=== PATIENT | male | born 1995 | race Caucasian/White ===

== ENCOUNTER 2016-10-15 00:16 | Inpatient (IN) | payer OTHER ==
[~2016-10-15] VITALS: Ht 182.9 cm; Wt 87.9 kg
[2016-10-15] VITALS (73 sets, daily range): BP systolic 62–214; BP diastolic 34–91; PULSE 95–139; TEMP 31.9–35; O2SAT 87–99; Ht 182.9 cm; Wt 87.9 kg
[~2016-10-15 00:16] MED LIST: ALBU1AER9
[2016-10-15 00:37] LABS: HEMATOCRIT 46.8 % (42-52); MEAN CELL VOLUME 98.7 fL (80-100); MEAN CORPUSCULAR HEMOGLOBIN 30.6 pg (25-34); MEAN PLATELET VOLUME 11.9 fL (7.4-10.4); PLATELET COUNT 218 K/uL (130-400); RED BLOOD COUNT 4.74 M/uL (4.7-6.1); WHITE BLOOD COUNT 14.96 K/uL (4.8-10.8)
[2016-10-15] MEDS ORDERED: SERT50TA PO (00:41)
[2016-10-15] MEDS ORDERED: PRVHFAIN INH (00:42)
[2016-10-15] MEDS ORDERED: DLN100 PO (00:44)
[2016-10-15] MEDS ORDERED: LORA-741 PO (00:45)
[2016-10-15 00:48] LABS: URINE APPEARANCE CLEAR (CLEAR); URINE BILIRUBIN NEG (NEG); URINE COLOR YELLOW; URINE NITRITE NEG (NEG); URINE SPECIFIC GRAVITY 1.028 (1.000-1.030); UROBILINOGEN NEG (NEG)
[2016-10-15] MEDS ORDERED: MONT1TAB5 PO (00:48)
[2016-10-15 00:50] LABS: ISTAT CREATININE 1.9 mg/dl (0.6-1.3); ISTAT HEMOGLOBIN 14.6 g/dl (14.0-18.0); ISTAT IONIZED CALCIUM 1.32 mmol/l (1.12-1.32)
--- NOTE | 2016-10-15 00:53 | EMERGENCY ROOM VISIT NOTE ---
History Report prepared by Adriano: Rafa Huizar Under the Supervision of: Dr. Princess Cano D.O. First contact with patient: 00:16 Chief Complaint: CARDIAC ARREST (DOA) Stated Complaint: CARDIAC ARREST History of Present Illness The patient is a 21 year old male who presents to the Emergency Room with complaints of cardiac arrest. This history is given by EMS secondary to the patient's cardiac arrest. He was last known well at 2216. EMS was called at 2300. The patient was found by his girlfriend in [place] with a white substance around his face. He was unresponsive when EMS arrived. He received 1 mg x 5 Epinephrine, 100 meq Bicarb, 1 g Calcium, and 2 mg Narcan. Per EMS, he had a white crushed pill, marijuana, on his person. His sugar was 541. Per the patient's parents, he has a past medical history of benzodiazepine abuse. Source of History: EMS History Limited By: cardiac arrest Onset: Last known well at 2216, EMS called at 2335 Position: other (Global) Symptom Intensity: severe Quality: other (Cardiac Arrest) Timing: constant Review of Systems See HPI for pertinent positives & negatives. A total of 10 systems reviewed and were otherwise negative. Past Medical & Surgical Medical Problems: (1) ASTHMA, UNSPECIFIED Unable to obtain secondary to cardiac arrest. Family History Unable to obtain secondary to cardiac arrest. Social History Housing Status: lives with family Social History: Unable to obtain secondary to cardiac arrest. Per the patient's parents, he has a past medical history of benzodiazepine abuse. Current/Historical Medications Scheduled Albuterol (Ventolin Hfa), 2 PUFFS INH QID Clindamycin Phosphate-Benzoyl (Acanya), 1 APPLN TOP BID Montelukast Sodium (Montelukast Sodium), 10 MG PO DAILY Phenytoin Sodium (Dilantin), 100 MG PO TID Sertraline (Zoloft), 50 MG PO DAILY Scheduled PRN Loratadine (Claritin), 10 MG PO DAILY PRN for ALLERGIC REACTION Lorazepam (Ativan), 0.5 MG PO DAILY PRN for Anxiety Allergies Coded Allergies: No Known Allergies (Verified , 11/19/04) Physical Exam Vital Signs Date Time Temp Pulse Resp B/P (MAP) Pulse Ox O2 Delivery O2 Flow Rate FiO2 10/15/16 01:26 103 25 85/36 96 10/15/16 01:21 101 25 87/37 97 10/15/16 01:16 97 25 79/31 95 10/15/16 01:14 94 10/15/16 01:11 91 30 74/30 91 10/15/16 01:06 88 10/15/16 01:06 88 29 82/47 90 10/15/16 01:01 86 20 74/29 90 10/15/16 01:00 34.1 113 20 137/49 76 Ambu-Bag 15.0 10/15/16 00:56 85 74/44 92 10/15/16 00:51 87 81/35 92 10/15/16 00:46 98 99/46 95 10/15/16 00:44 100 10/15/16 00:41 121 147/95 93 10/15/16 00:38 101 10/15/16 00:36 101 80/37 91 10/15/16 00:35 77/44 10/15/16 00:31 103 79/42 88 10/15/16 00:26 108 98/48 83 10/15/16 00:21 125 119/66 76 10/15/16 00:19 137/49 10/15/16 00:18 113 Physical Exam General: Unresponsive with vomitus coming from the nose and mouth. HEENT: Head - normocephalic and atraumatic Pupils are 8 mm's and fixed. Extraocular eye muscles are intact, and sclera are anicteric. Nose - moist nasal mucosa with vomit noted. Mouth - moist buccal mucosa. Oropharynx is nonerythematous and there is no tonsillar exudate or edema noted. Endotracheal tube in place. Neck: Supple; no nuchal rigidity, cervical lymphadenopathy. Heart: Tachycardic rate and normal rhythm. There is a normal S1 and S2 with no murmurs, clicks, or gallops appreciated. Lungs: Clear to auscultation bilaterally with no wheezes, rales, or rhonchi. Abdomen: Soft, distended, with good bowel sounds. There are no palpable pulsatile masses or hepatosplenomegaly. There is no guarding, rigidity, or rebound noted. Extremities: No evidence of cyanosis, clubbing, or edema. There are easily palpable peripheral pulses. No obvious track dunbar. Skin: warm and diaphoretic with good turgor and no rashes. Medical Decision & Procedures ER Provider Diagnostic Interpretation: Radiology results as stated below per my review and the radiologist's interpretation: CHEST X-RAY: Endotracheal tube 3 cm above the adi. Biapical opacities concerning for aspiration. Per pr Laboratory Results 10/15/16 00:22 Red Blood Count 4.74, Mean Corpuscular Volume 98.7, Mean Corpuscular Hemoglobin 30.6, Mean Corpuscular Hemoglobin Concent 31.0, Mean Platelet Volume 11.9, Neutrophils (%) (Auto) 14.9, Lymphocytes (%) (Auto) 78.4, Monocytes (%) (Auto) 4.1, Eosinophils (%) (Auto) 1.1, Basophils (%) (Auto) 0.3, Neutrophils # (Auto) 2.24, Lymphocytes # (Auto) 11.73, Monocytes # (Auto) 0.61, Eosinophils # (Auto) 0.16, Basophils # (Auto) 0.04 Test 10/15/16 00:22 10/15/16 00:26 10/15/16 00:35 10/15/16 00:40 White Blood Count 14.96 K/uL (4.8-10.8) Red Blood Count 4.74 M/uL (4.7-6.1) Hemoglobin 14.5 g/dL (14.0-18.0) Hematocrit 46.8 % (42-52) Mean Corpuscular Volume 98.7 fL (80-100) Mean Corpuscular Hemoglobin 30.6 pg (25-34) Mean Corpuscular Hemoglobin Concent 31.0 g/dl (32-36) Platelet Count 218 K/uL (130-400) Mean Platelet Volume 11.9 fL (7.4-10.4) Neutrophils (%) (Auto) 14.9 % Lymphocytes (%) (Auto) 78.4 % Monocytes (%) (Auto) 4.1 % Eosinophils (%) (Auto) 1.1 % Basophils (%) (Auto) 0.3 % Neutrophils # (Auto) 2.24 K/uL (1.4-6.5) Lymphocytes # (Auto) 11.73 K/uL (1.2-3.4) Monocytes # (Auto) 0.61 K/uL (0.11-0.59) Eosinophils # (Auto) 0.16 K/uL (0-0.5) Basophils # (Auto) 0.04 K/uL (0-0.2) RDW Standard Deviation 45.7 fL (36.4-46.3) RDW Coefficient of Variation 12.7 % (11.5-14.5) Immature Granulocyte % (Auto) 1.2 % Immature Granulocyte # (Auto) 0.18 K/uL (0.00-0.02) Echinocytes 1+ Lactic Acid Level 16.1 mmol/L (0.4-2.0) Total Bilirubin 0.3 mg/dl (0.2-1) Aspartate Amino Transf (AST/SGOT) 63 U/L (15-37) Alanine Aminotransferase (ALT/SGPT) 54 U/L (12-78) Alkaline Phosphatase 104 U/L (45-117) Total Protein 6.2 gm/dl (6.4-8.2) Albumin 3.4 gm/dl (3.4-5.0) Globulin 2.8 gm/dl (2.5-4.0) Albumin/Globulin Ratio 1.2 (0.9-2) Beta-Hydroxybutyric Acid 2.31 mg/dL (0.2-2.81) Chemistry Specimen Hemolysis Salicylates Level < 1.7 mg/dl (2.8-20) Acetaminophen Level < 2 ug/ml (10-30) Ethyl Alcohol mg/dL < 3.0 mg/dl (0-3) Bedside Chloride 100 mEq/L (101-112) Bedside Total CO2 19 mEq/l (24-31) Bedside Blood Urea Nitrogen 24 mg/dl (7-18) Bedside Creatinine 1.9 mg/dl (0.6-1.3) Bedside Glucose (other) 459 mg/dl (70-99) Bedside Ionized Calcium (Katherine) 1.32 mmol/l (1.12-1.32) Urine Color YELLOW Urine Appearance CLEAR (CLEAR) Urine pH 5.0 (4.5-7.5) Urine Specific [place] 1.028 (1.000-1.030) Urine Protein NEG (NEG) Urine Glucose (UA) NEG (NEG) Urine Ketones NEG (NEG) Urine Occult Blood NEG (NEG) Urine Nitrite NEG (NEG) Urine Bilirubin NEG (NEG) Urine Urobilinogen NEG (NEG) Urine Leukocyte Esterase NEG (NEG) Urine Opiates Screen NEG (NEG) Urine Methadone, Qualitative NEG (NEG) Urine Barbiturates NEG (NEG) Urine Phencyclidine (PCP) Level NEG (NEG) Ur Amphetamine/Methamphetamine NEG (NEG) MDMA (Ecstasy) Screen NEG (NEG) Urine Benzodiazepines Screen POS (NEG) Urine Cocaine Metabolite NEG (NEG) Urine Marijuana (THC) POS (NEG) Arterial Blood pH 6.86 (7.35-7.45) Arterial Blood Partial Pressure CO2 87 mmHg (35-46) Arterial Blood Partial Pressure O2 122 mm/Hg (80-95) Arterial Blood HCO3 15 mmol/L (19-24) Arterial Blood Oxygen Saturation 94.7 % (90-95) Arterial Blood Base Excess -19.1 mEq/L (-9-1.8) Arterial Blood Gas Delivery 100% Keon Test POS (POS) Test 10/15/16 01:26 Bedside Hemoglobin 11.2 g/dl (14.0-18.0) Bedside Hematocrit 33 % (42-52) Bedside Sodium 141 mEq/L (135-144) Bedside Potassium 5.3 mEq/L (3.3-5.0) Laboratory results per my review. Medications Administered Medications (Trade) Dose Ordered Sig/Jose Route Start Time Stop Time Status Last Admin Dose Admin Piperacillin Sod/ Tazobactam Sod (Zosyn Iv) 4.5 gm NOW STAT IV 10/15/16 01:19 10/15/16 01:20 DC 10/15/16 01:50 4.5 GM Procedure Zosyn Iv 4.5 gm IV IV normal saline hydration IV cold saline bolus ECG Indication: toxicologic Rate (beats per minute): 102 Rhythm: sinus tachycardia Findings: no acute ischemic change, no ectopy ED Course 0016: Past medical records reviewed. The patient was evaluated in room A1. A complete history and physical exam was performed. 218-gauge IV catheters were placed in each arm. A normal saline bolus was initiated. The patient was placed on a cut off operator scorer and pulse oximeter. He had such significant vomit around his stay in mouth, the tube donato had to be changed and the patient was suctioned from the mouth and nose. A twelve-lead EKG was obtained. 0036: I spoke with Dr. Cummins - [facility], at this time. He recommended that we try to transfer the patient to a tertiary care facility for further management. 0045: The patient's uncle is at bedside. I am updating him. I also spoke with the patient's father on the phone. 0108: We started the cooling process at this time. I was informed by the police that they found Oxycodone and Vicodin at the patients house that he purchased today. 0113: I was informed that we will not be able to transfer the patient because of weather conditions. Dr. Cummins will be coming in to evaluate the patient further. Dr. Rubio - [facility], is also managing the patient as well. ABG was noted to be significantly acidotic with a pH of 6.86. I increased the patient's respiratory rate on the ventilator trying to achieve a higher minute ventilation. 0119: There is concern on the chest x-ray and by history for aspiration pneumonia. The patient was given Zosyn Iv 4.5 gm IV 0135: I spoke with the patient's mother at this time. He is receiving 2 L of cooled saline. His pressure went up slightly. He has a cooling blanket in place. I ordered the patient to start IV leave the fat as his pressure did not come up significantly after receiving the cooled saline. However, the patient' s blood pressure then seemed to normalize. I discussed the case at bedside with Dr. Cummins and Dr. Mendez. Medical Decision The patient is a 21 year old male who presents to the ED with cardiac arrest. Differential diagnosis includes drug overdose, cardiac arrest, anoxic brain injury, and aspiration. I attest that I have personally reviewed the patient's current medication list. Blood Pressure Screening: Patient was found to have low blood pressure, status post cardiac arrest. Laboratory Results: White blood cell count 14.9, hemoglobin 14.6, platelet count 218, glucose 467, creatinine 2.5, BUN 20, anion gap 24, carbon dioxide 17, LFTs normal, BHA 2.3, initial blood gas pH 6.86, pCO2 87, pO2 122, bicarb 15, repeat ABG after vent adjustments pH 7.0, pCO2 69, pO2 189, bicarb 18, toxicity screen positive for benzodiazepine and marijuana, Tylenol and Aspirin levels neg, alcohol negative, and urinalysis normal. This is a 21-year-old male patient with a history of benzodiazepine abuse who was found in his bedroom in cardiac arrest. The patient was found by his girlfriend with agonal respirations. Upon S arrival, the patient had a faint pulse but was barely breathing. They assisted ventilations. The patient then became pulseless and CPR was initiated. Upon ALS arrival, the patient was placed in a cut off operator scorer and found to be asystolic. CPR was continued and the patient was given multiple doses of IV epinephrine, IV bicarbonate, and IV calcium. The patient remained asystolic for most of the transport. After a second dose of IV bicarbonate, the patient regained a rhythm of sinus tachycardia with a faint pulse. He was then given IV Narcan with return of spontaneous circulation and strong carotid pulse. Upon arrival in the emergency department, the patient had a pulse and blood pressure but no spontaneous respirations. He was placed on the ventilator. Chest x-ray showed that the endotracheal tube was somewhat high and had to be advanced. There was concern for aspiration pneumonia on the x-ray and IV antibiotics were started. The patient's O2 saturation dropped while in the emergency department. We reconfirm tube placement. He was hyperventilated. An ABG was obtained which showed severe metabolic acidosis. An OG tube was placed to decompress his stomach. The patient became hypotensive while here in the emergency department. He received 2 L of normal saline solution with no increased to his blood pressure. Because this was a ROSC after cardiac arrest, the colon process was started. The patient's initial rectal temperature was 34 . After 2 L of cool saline, the temp came down to 33. He is placed on a cooling blanket. We were targeting 32. I kept the patient's uncle abreast of the situation while he was at the bedside. Consults Time Called: 003 Consulting Physician: Dr. Cummins - [facility] Returned Call: 0036 Please see the ED course for more information. Additional Consults: Time Called: 0110 Consulted Physician: Dr. Cummins - [facility] Returned Call: 0113 Additional Comments: Please see the ED course for more information. Impression Primary Impression: Cardiac arrest Additional Impression: Drug overdose Critical Care I have personally spent greater than 90 minutes of critical care time in the direct management of this patient. This includes bedside care, interpretation of diagnostic studies, and testing, discussion with consultants, patient, and family members, and other required patient management activities. This 90 minutes is in excess of all separately billable procedures. Scribe Attestation The scribe's documentation has been prepared under my direction and personally reviewed by me in its entirety. I confirm that the note above accurately reflects all work, treatment, procedures, and medical decision making performed by me. Departure Information Dispostion Being Evaluated By Hospitalist Patient Instructions My [facility] Problem Qualifiers
[2016-10-15 00:56] LABS: MANUAL MICROSCOPIC REQUIRED? NO; REVIEW REQ? NO
[2016-10-15 01:01] LABS: ALLEN TEST POS (POS); ARTERIAL BLD GAS O2 SATURATION 94.7 % (90-95); ARTERIAL BLOOD GAS BASE EXCESS -19.1 mEq/L (-9-1.8); ARTERIAL BLOOD GAS HCO3 15 mmol/L (19-24); ARTERIAL BLOOD GAS PO2 122 mm/Hg (80-95); O2 ADMINISTRATION 100%
[2016-10-15 01:02] LABS: ARTERIAL BLOOD GAS pH 6.86 (7.35-7.45)
[2016-10-15 01:04] LABS: ALB/GLOB RATIO 1.2 (0.9-2); ALKALINE PHOSPHATASE 104 U/L (45-117); ALT/SGPT 54 U/L (12-78); AST/SGOT 63 U/L (15-37); BLOOD UREA NITROGEN 20 mg/dl (7-18); BUN/CREATININE RATIO 8.1 (10-20); CALCIUM 10.4 mg/dl (8.5-10.1); CARBON DIOXIDE 17 mmol/L (21-32); CHLORIDE 102 mmol/L (98-107); GLUCOSE 467 mg/dl (70-99); POTASSIUM 4.3 mmol/L (3.5-5.1); SODIUM 143 mmol/L (136-145)
[2016-10-15 01:06] LABS: BASO % 0.3 %; BASO ABS # 0.04 K/uL (0-0.2); COMPLETE YES; ECHINOCYTES 1+; EOS % 1.1 %; IG% 1.2 %; LYMPH % 78.4 %; LYMPH ABS # 11.73 K/uL (1.2-3.4); MONO % 4.1 %; NEUT % 14.9 %
[2016-10-15 01:09] LABS: BENZODIAZEPINE, URINE POS (NEG); COCAINE,URINE NEG (NEG); PHENCYCLIDINE, URINE NEG (NEG)
[2016-10-15] MEDS ORDERED: CLIN45GE TOP (01:13)
[2016-10-15] MEDS ORDERED: CLR10 PO (01:15)
[2016-10-15 01:16] LABS: BETA-HYDROXYBUTYRATE 2.31 mg/dL (0.2-2.81)
[2016-10-15] MEDS ORDERED: PIPERACILLIN/TAZOBACTAM 4.5 GM/100ML D5W IV STA ×2 (01:19→06:28)
[2016-10-15 01:21] LABS: ACETAMINOPHEN < 2 ug/ml (10-30)
[2016-10-15 01:39] LABS: ISTAT ARTERIAL BLOOD GAS HCO3 18 meq/L (19-24); ISTAT ARTERIAL BLOOD GAS PCO2 69 mmHg (35-46); ISTAT ARTERIAL BLOOD GAS PO2 189 mmHg (80-95); ISTAT ARTERIAL BLOOD GAS pH 7.01 (7.35-7.45); ISTAT CARBON DIOXIDE 20 mEq/l (24-31); ISTAT HEMATOCRIT 33 % (42-52); ISTAT HEMOGLOBIN 11.2 g/dl (14.0-18.0); ISTAT SODIUM 141 mEq/L (135-144)
--- NOTE | 2016-10-15 02:11 | Critical Care Consultation ---
Critical Care Consultation Date of Consultation: Oct 15, 2016. Attending Physician: Reason for Consultation: Respiratory Arrest/Cardiac Arrest History of Present Illness Asked to evaluate for ICU care. He was found in arrest and attempts to restore respiratory and circulatory status made in the field. He was given additional care in the ER. In addition to volume and pressors, ventilatory support provided. He did require CPR for a prolonged period. With these heroic measures a pulse and B/P were established. He is comatose and on a ventilator. My initial evaluation finds him with fixed and dilated pupils. No reaction to any stimulation could be generated. He is requiring 100% oxygen and massive support. Past Medical/Surgical History Benzo-abuse is report Seizure Disorder suggested Anxiety? Disorder Social History Unknown but ER physician reports evidence of probable drug abuse at the seen. This information was reportedly from the State Police. Smoking Status: Never Smoker Marital Status: single Housing Status: lives with family Occupation Status: student Allergies Coded Allergies: No Known Allergies (Verified , 11/19/04) Home Medications Scheduled Albuterol (Ventolin Hfa), 2 PUFFS INH QID Clindamycin Phosphate-Benzoyl (Acanya), 1 APPLN TOP BID Montelukast Sodium (Montelukast Sodium), 10 MG PO DAILY Phenytoin Sodium (Dilantin), 100 MG PO TID Sertraline (Zoloft), 50 MG PO DAILY Scheduled PRN Loratadine (Claritin), 10 MG PO DAILY PRN for ALLERGIC REACTION Lorazepam (Ativan), 0.5 MG PO DAILY PRN for Anxiety Review of Systems Unavailable--I did speak with the ER doctor. Drug overdose was suggested by the police and EMS personnel. He is comatose. Physical Exam Date Time Temp Pulse Resp B/P (MAP) Pulse Ox O2 Delivery O2 Flow Rate FiO2 10/15/16 01:58 100 10/15/16 01:56 33.1 113 20 91/42 90 10/15/16 01:51 112 15 92/42 90 10/15/16 01:49 81/44 10/15/16 01:46 109 25 71/43 88 10/15/16 01:45 33.1 10/15/16 01:41 108 25 86/40 93 10/15/16 01:37 80 10/15/16 01:36 106 25 81/36 94 10/15/16 01:31 103 25 85/34 96 10/15/16 01:26 103 25 85/36 96 10/15/16 01:21 101 25 87/37 97 10/15/16 01:16 97 25 79/31 95 10/15/16 01:14 94 10/15/16 01:11 91 30 74/30 91 10/15/16 01:06 88 10/15/16 01:06 88 29 82/47 90 10/15/16 01:01 86 20 74/29 90 10/15/16 01:00 34.1 113 20 137/49 76 Ambu-Bag 15.0 10/15/16 00:56 85 74/44 92 10/15/16 00:51 87 81/35 92 10/15/16 00:46 98 99/46 95 10/15/16 00:44 100 10/15/16 00:41 121 147/95 93 10/15/16 00:38 101 10/15/16 00:36 101 80/37 91 10/15/16 00:35 77/44 10/15/16 00:31 103 79/42 88 10/15/16 00:26 108 98/48 83 10/15/16 00:21 125 119/66 76 10/15/16 00:19 137/49 10/15/16 00:18 113 Gen--comatose HEENT--pupils appear dilated and fixed at this point. No mia. Does not trigger the vent Respiratory--course exchange Cardio--rate and volume difficult to evaluate at this point. He is perfused. GI--very faint --samayoa to gravity Musculo--no erythema, no evidence of trauma Neuro--comatose--Coma Score--0 Derm--no active lesions suggested Laboratory Results Last 24 Hours Test 10/15/16 00:22 10/15/16 00:26 10/15/16 00:35 10/15/16 00:40 White Blood Count 14.96 K/uL Red Blood Count 4.74 M/uL Hemoglobin 14.5 g/dL Hematocrit 46.8 % Mean Corpuscular Volume 98.7 fL Mean Corpuscular Hemoglobin 30.6 pg Mean Corpuscular Hemoglobin Concent 31.0 g/dl Platelet Count 218 K/uL Mean Platelet Volume 11.9 fL Neutrophils (%) (Auto) 14.9 % Lymphocytes (%) (Auto) 78.4 % Monocytes (%) (Auto) 4.1 % Eosinophils (%) (Auto) 1.1 % Basophils (%) (Auto) 0.3 % Neutrophils # (Auto) 2.24 K/uL Lymphocytes # (Auto) 11.73 K/uL Monocytes # (Auto) 0.61 K/uL Eosinophils # (Auto) 0.16 K/uL Basophils # (Auto) 0.04 K/uL RDW Standard Deviation 45.7 fL RDW Coefficient of Variation 12.7 % Immature Granulocyte % (Auto) 1.2 % Immature Granulocyte # (Auto) 0.18 K/uL Echinocytes 1+ Sodium Level 143 mmol/L Potassium Level 4.3 mmol/L Chloride Level 102 mmol/L Carbon Dioxide Level 17 mmol/L Anion Gap 24.0 mmol/L 27.0 mmol/L Blood Urea Nitrogen 20 mg/dl Creatinine 2.50 mg/dl Estimated GFR () 40.7 Estimated GFR (Non- 35.1 BUN/Creatinine Ratio 8.1 Random Glucose 467 mg/dl Lactic Acid Level 16.1 mmol/L Calcium Level 10.4 mg/dl Total Bilirubin 0.3 mg/dl Aspartate Amino Transf (AST/SGOT) 63 U/L Alanine Aminotransferase (ALT/SGPT) 54 U/L Alkaline Phosphatase 104 U/L Total Protein 6.2 gm/dl Albumin 3.4 gm/dl Globulin 2.8 gm/dl Albumin/Globulin Ratio 1.2 Beta-Hydroxybutyric Acid 2.31 mg/dL Chemistry Specimen Hemolysis Salicylates Level < 1.7 mg/dl Acetaminophen Level < 2 ug/ml Ethyl Alcohol mg/dL < 3.0 mg/dl Bedside Hemoglobin 14.6 g/dl Bedside Hematocrit 43 % Bedside Sodium 141 mEq/L Bedside Potassium 4.2 mEq/L Bedside Chloride 100 mEq/L Bedside Total CO2 19 mEq/l Bedside Blood Urea Nitrogen 24 mg/dl Bedside Creatinine 1.9 mg/dl Bedside Glucose (other) 459 mg/dl Bedside Ionized Calcium (Katherine) 1.32 mmol/l Urine Color YELLOW Urine Appearance CLEAR Urine pH 5.0 Urine Specific [place] 1.028 Urine Protein NEG Urine Glucose (UA) NEG Urine Ketones NEG Urine Occult Blood NEG Urine Nitrite NEG Urine Bilirubin NEG Urine Urobilinogen NEG Urine Leukocyte Esterase NEG Urine Opiates Screen NEG Urine Methadone, Qualitative NEG Urine Barbiturates NEG Urine Phencyclidine (PCP) Level NEG Ur Amphetamine/Methamphetamine NEG MDMA (Ecstasy) Screen NEG Urine Benzodiazepines Screen POS Urine Cocaine Metabolite NEG Urine Marijuana (THC) POS Arterial Blood pH 6.86 Arterial Blood Partial Pressure CO2 87 mmHg Arterial Blood Partial Pressure O2 122 mm/Hg Arterial Blood HCO3 15 mmol/L Arterial Blood Oxygen Saturation 94.7 % Arterial Blood Base Excess -19.1 mEq/L Arterial Blood Gas Delivery 100% Keon Test POS Test 10/15/16 01:26 Bedside Hemoglobin 11.2 g/dl Bedside Hematocrit 33 % Bedside Blood Gas pH (LAB) 7.01 Bedside Blood Gas pCO2 (LAB) 69 mmHg Bedside Blood Gas pO2 (LAB) 189 mmHg Bedside Blood Gas HCO3 (LAB) 18 meq/L Bedside Blood Gas Total CO2 20 mEq/l Bedside Blood Gas Base Excess (LAB) -13.0 meq/L Bedside Blood Gas O2 Saturation 99.0 % Bedside Sodium 141 mEq/L Bedside Potassium 5.3 mEq/L Assessment & Plan Cardiopulmonary arrest likely the result of OD--A prolonged period of heroic efforts noted. This represents a catastrophic event and I fear he is neurological devastated. 1. Cardio--general supportive measures in place--ICU care--Pressors and volume as required. 2. Pulmonary--vent support--aspiration likely. May also have an element of neurogenic pulmonary edema. He currently is requiring 100% oxygen and generous PEEP 3. Neuro--general supportive measures--will talk the team--Situation looking grave. The cooling protocol was initiated but given my evaluation I doubt this will be of any benefit at this point and will look to discontinue this measure. EEG in the AM to help determine objective neuro activity. His condition is grave. Addendum: 1100 He has received mass amounts of fluid and is now on Dopamine and Norepi. His acidosis is very difficult to correct. I am seeing signs of poor perfusion despite efforts. Maximal vent support in place. Urine output is poor. The neurological status unchanged. No response whatsoever can be generated. Has gotten no sedation whatsoever. He appears premorbid. I will discuss the status with neurology and the ICU team. Will update the family.
[2016-10-15 03:00] LABS: ISTAT ALLEN TEST Pass; ISTAT ARTERIAL BLOOD GAS HCO3 20 meq/L (19-24); ISTAT ARTERIAL BLOOD GAS PCO2 55 mmHg (35-46); ISTAT ARTERIAL BLOOD GAS PO2 40 mmHg (80-95); ISTAT ARTERIAL BLOOD GAS pH 7.14 (7.35-7.45); ISTAT CARBON DIOXIDE 22 mEq/l (24-31); ISTAT DELIVERY SYSTEM Ventilator; ISTAT FIO2 100 %; ISTAT PEEP 10; ISTAT RATE 20; ISTAT SITE L Radial; VE 12.8; Vt 640
[2016-10-15 04:36] LABS: ISTAT ALLEN TEST Pass; ISTAT ARTERIAL BLOOD GAS HCO3 18 meq/L (19-24); ISTAT ARTERIAL BLOOD GAS PCO2 44 mmHg (35-46); ISTAT ARTERIAL BLOOD GAS PO2 < 32 mmHg (80-95); ISTAT ARTERIAL BLOOD GAS pH 7.18 (7.35-7.45); ISTAT CARBON DIOXIDE 19 mEq/l (24-31); ISTAT DELIVERY SYSTEM Ventilator; ISTAT FIO2 100 %; ISTAT PEEP 10; ISTAT RATE 20; ISTAT SITE R Radial; Vt 700
[2016-10-15 04:36] LABS: ISTAT ALLEN TEST Pass; ISTAT ARTERIAL BLOOD GAS HCO3 19 meq/L (19-24); ISTAT ARTERIAL BLOOD GAS PCO2 44 mmHg (35-46); ISTAT ARTERIAL BLOOD GAS PO2 < 32 mmHg (80-95); ISTAT CARBON DIOXIDE 20 mEq/l (24-31); ISTAT DELIVERY SYSTEM Ventilator; ISTAT FIO2 100 %; ISTAT PEEP 10; ISTAT RATE 20; ISTAT SITE R Radial; Vt 700
[2016-10-15] MEDS ORDERED: LACTATED RINGER'S 1000ML 1,000 ML IV STA (04:42)
[2016-10-15] MEDS ORDERED: D5W AND NSS 1,000 ML IV SCH (04:45)
[2016-10-15] MEDS ORDERED: NURSING VERBAL MED ORDER ONE ×5 (04:45→22:45)
[2016-10-15 04:48] LABS: ISTAT ALLEN TEST Pass; ISTAT ARTERIAL BLOOD GAS HCO3 18 meq/L (19-24); ISTAT ARTERIAL BLOOD GAS PCO2 44 mmHg (35-46); ISTAT ARTERIAL BLOOD GAS PO2 < 32 mmHg (80-95); ISTAT ARTERIAL BLOOD GAS pH 7.19 (7.35-7.45); ISTAT CARBON DIOXIDE 20 mEq/l (24-31); ISTAT DELIVERY SYSTEM Ventilator; ISTAT FIO2 100 %; ISTAT PEEP 10; ISTAT RATE 20; ISTAT SITE L Radial; Vt 700
[2016-10-15] MEDS ORDERED: NURSING VERBAL MED ORDER STA (05:02)
[2016-10-15] MEDS ORDERED: LACTATED RINGER'S 1000ML 1,000 ML IV SCH ×2 (05:15→13:00)
[2016-10-15 06:01] LABS: INR 1.5 (0.9-1.1); PARTIAL THROMBOPLASTIN RATIO 1.2; PROTHROMBIN TIME (PATIENT) 15.9 SECONDS (9.0-12.0)
[2016-10-15] MEDS ORDERED: SODIUM BICARB 8.4% INJ 50 MEQ/50 ML SYR IV ONE ×2 (06:14→06:39)
[2016-10-15] MEDS ORDERED: SOD CHLOR 14.6% 2.5MEQ/ML 38.5 MEQ, SODIUM BICARBONATE 8.4% INJ 100 MEQ in STERILE WATE... IV SCH (06:15)
[2016-10-15] MEDS ORDERED: NOREPINEPHRINE BIT INJ 8 MG in DEXTROSE 5% 500ML 500 ML IV PRN (06:16)
[2016-10-15] MEDS ORDERED: NALOXONE HCL 0.4 MG/1 ML VIAL/CARP IV STA (06:20)
[2016-10-15] MEDS ORDERED: NALOXONE HCL 0.4 MG/1 ML VIAL/CARP ONE (06:22)
[2016-10-15 06:24] LABS: BUN/CREATININE RATIO 11.4 (10-20); CALCIUM 7.4 mg/dl (8.5-10.1); CREATININE 2.1 mg/dl (0.60-1.40); MAGNESIUM 1.8 mg/dl (1.8-2.4); POTASSIUM 4.9 mmol/L (3.5-5.1)
[2016-10-15] MEDS ORDERED: VANCOMYCIN INJ 1,000 MG in SODIUM CHLORIDE 0.9% 250ML 250 ML IV STA (06:28)
[2016-10-15] MEDS ORDERED: PIPERACILL/TAZOBAC IV 4.5 GM in DEXTROSE 5% 100ML 100 ML IV SCH (06:30)
[2016-10-15] MEDS: SOD CHLOR 14.6% 2.5MEQ/ML 38.5 MEQ, SODIUM BICARBONATE 8.4% INJ 100 MEQ in STERILE WATE... IV SCH ×2 (06:31→06:46)
[2016-10-15] MEDS ORDERED: VANCOMYCIN INJ 2,200 MG in SODIUM CHLORIDE 0.9% 500ML 500 ML IV STA (06:32)
--- NOTE | 2016-10-15 06:37 | DIAGNOSTIC IMAGING REPORT ---
CHEST ONE VIEW PORTABLE HISTORY:21 yearsMaleHYPOXIA COMPARISON: Chest radiograph 10/15/2016 at 12:21 AM TECHNIQUE: Portable upright AP view of the chest FINDINGS: Endotracheal tube terminates 4.0 cm superior to the adi. Enteric tube courses below the level of the diaphragm outside the [id number] with side-port near the gastroesophageal junction. Cardiac silhouette is within normal limits. There are progressive multilobar multifocal alveolar opacities in a perihilar and bibasilar distribution with background interstitial coarsening. There is blunting of the bilateral costophrenic angles. The bones are grossly intact. IMPRESSION: 1. Satisfactory position of endotracheal tube. 2. Progressive bilateral perihilar and bibasilar distribution of alveolar opacities suggest pulmonary edema with small bilateral pleural effusions and bibasilar atelectasis or aspiration pneumonitis. The above report was generated using voice recognition software. It may contain grammatical, syntax or spelling errors. Electronically signed by: Aung Fisher M.D. 10/15/2016 6:36 AM Dictated Date/Time: 10/15/2016 6:33 AM
--- NOTE | 2016-10-15 06:54 | DIAGNOSTIC IMAGING REPORT ---
CHEST ONE VIEW PORTABLE HISTORY:21 yearsMalepost intubation respiratory failure. COMPARISON: Chest radiograph 10/15/2016 at 6:23 AM TECHNIQUE: Portable supine AP view of the chest FINDINGS: Endotracheal tube terminates 3.8 cm superior to the level of the adi. Cardiac silhouette is within normal limits. No pneumothorax or large pleural effusion. Multifocal mixed interstitial and alveolar opacities are noted, greatest in a perihilar and upper lobe predominant distribution. The bones are grossly intact. IMPRESSION: 1. Satisfactory positioning of endotracheal tube. 2. Multifocal mixed interstitial and alveolar opacities suggest pulmonary edema or atypical pneumonia. The above report was generated using voice recognition software. It may contain grammatical, syntax or spelling errors. Electronically signed by: Aung Fisher M.D. 10/15/2016 6:53 AM Dictated Date/Time: 10/15/2016 6:51 AM
[2016-10-15] MEDS ORDERED: PIPERACILL/TAZOBAC CONSULT ACTIVE PRN (07:00)
[2016-10-15] MEDS ORDERED: VANCOMYCIN CONSULT ACTIVE PRN (07:00)
--- NOTE | 2016-10-15 07:03 | History and Physical ---
History & Physical Date & Time of Service: Oct 15, 2016 at 06:43 Chief Complaint: Cardiac Arrest Primary Care Physician: Hemanth Razo M.D. History of Present Illness 21-year-old male was brought to the ER after cardiac arrest. Per EMS report, the patient was found unresponsive and had agonal breaths. His last known well time was at 2216. He was found with a white substance on his face and a white crushed pill, marijuana were found nearby. He was intubated and had chest compressions about 30 minutes before he was brought to the ER. Was also found to have a blood sugar of 541 Past Medical/Surgical History Medical Problems: (1) ASTHMA, UNSPECIFIED Status: Chronic Social History Smoking Status: Unknown if Ever Smoked Marital Status: single Occupational Status: student Multi-Drug Resistant Organisms History of MDRO: No Allergies Coded Allergies: No Known Allergies (Verified , 11/19/04) Home Medications Scheduled Albuterol (Ventolin Hfa), 2 PUFFS INH QID Clindamycin Phosphate-Benzoyl (Acanya), 1 APPLN TOP BID Montelukast Sodium (Montelukast Sodium), 10 MG PO DAILY Phenytoin Sodium (Dilantin), 100 MG PO TID Sertraline (Zoloft), 50 MG PO DAILY Scheduled PRN Loratadine (Claritin), 10 MG PO DAILY PRN for ALLERGIC REACTION Lorazepam (Ativan), 0.5 MG PO DAILY PRN for Anxiety Review of Systems unable to obtain as patient is intubated Physical Exam Vital Signs Date Time Temp Pulse Resp B/P (MAP) Pulse Ox O2 Delivery O2 Flow Rate FiO2 10/15/16 05:23 100 10/15/16 04:00 100 10/15/16 04:00 Mechanical Ventilator 100 10/15/16 04:00 32.0 106 20 85/62 (70) 89 Mechanical Ventilator 100 10/15/16 03:00 32.3 108 20 94/63 (73) 90 Mechanical Ventilator 100 10/15/16 02:46 32.6 109 20 84/55 (60) 88 10/15/16 02:30 100 10/15/16 02:30 88 Mechanical Ventilator 80 10/15/16 02:15 32.9 113 20 105/54 87 Mechanical Ventilator 100 10/15/16 02:12 33.0 113 20 102/51 88 Mechanical Ventilator 100 10/15/16 02:00 33.1 10/15/16 01:58 100 10/15/16 01:56 33.1 113 20 91/42 90 10/15/16 01:51 112 15 92/42 90 10/15/16 01:49 81/44 10/15/16 01:46 109 25 71/43 88 10/15/16 01:45 33.1 10/15/16 01:41 108 25 86/40 93 10/15/16 01:37 80 10/15/16 01:36 106 25 81/36 94 10/15/16 01:31 103 25 85/34 96 10/15/16 01:26 103 25 85/36 96 10/15/16 01:21 101 25 87/37 97 10/15/16 01:16 97 25 79/31 95 10/15/16 01:14 94 10/15/16 01:11 91 30 74/30 91 10/15/16 01:06 88 10/15/16 01:06 88 29 82/47 90 10/15/16 01:01 86 20 74/29 90 10/15/16 01:00 34.1 113 20 137/49 76 Ambu-Bag 15.0 10/15/16 00:56 85 74/44 92 10/15/16 00:51 87 81/35 92 10/15/16 00:46 98 99/46 95 10/15/16 00:44 100 10/15/16 00:41 121 147/95 93 10/15/16 00:38 101 10/15/16 00:36 101 80/37 91 10/15/16 00:35 77/44 10/15/16 00:31 103 79/42 88 10/15/16 00:26 108 98/48 83 10/15/16 00:21 125 119/66 76 10/15/16 00:19 137/49 10/15/16 00:18 113 Eyes: + pertinent finding (fixed and non reactive) ENT: + pertinent finding (intubated) Respiratory/Chest: lungs clear, normal breath sounds Cardiovascular: + tachycardia Abdomen/GI: normal bowel sounds, non tender, soft Extremities/Musculoskelatal: no pedal edema Neurologic/Psych: + pertinent finding (intubated) Diagnostics Laboratory Results Results Past 24 Hours Test 10/15/16 00:22 10/15/16 00:26 10/15/16 00:35 10/15/16 00:40 Range/Units White Blood Count 14.96 4.8-10.8 K/uL Red Blood Count 4.74 4.7-6.1 M/uL Hemoglobin 14.5 14.0-18.0 g/dL Hematocrit 46.8 42-52 % Mean Corpuscular Volume 98.7 80-100 fL Mean Corpuscular Hemoglobin 30.6 25-34 pg Mean Corpuscular Hemoglobin Concent 31.0 32-36 g/dl Platelet Count 218 130-400 K/uL Mean Platelet Volume 11.9 7.4-10.4 fL Neutrophils (%) (Auto) 14.9 % Lymphocytes (%) (Auto) 78.4 % Monocytes (%) (Auto) 4.1 % Eosinophils (%) (Auto) 1.1 % Basophils (%) (Auto) 0.3 % Neutrophils # (Auto) 2.24 1.4-6.5 K/uL Lymphocytes # (Auto) 11.73 1.2-3.4 K/uL Monocytes # (Auto) 0.61 0.11-0.59 K/uL Eosinophils # (Auto) 0.16 0-0.5 K/uL Basophils # (Auto) 0.04 0-0.2 K/uL RDW Standard Deviation 45.7 36.4-46.3 fL RDW Coefficient of Variation 12.7 11.5-14.5 % Immature Granulocyte % (Auto) 1.2 % Immature Granulocyte # (Auto) 0.18 0.00-0.02 K/uL Echinocytes 1+ Sodium Level 143 136-145 mmol/L Potassium Level 4.3 3.5-5.1 mmol/L Chloride Level 102 98-107 mmol/L Carbon Dioxide Level 17 21-32 mmol/L Anion Gap 24.0 27.0 16-25 mmol/L Blood Urea Nitrogen 20 7-18 mg/dl Creatinine 2.50 0.60-1.40 mg/dl Estimated GFR () 40.7 Estimated GFR (Non- 35.1 BUN/Creatinine Ratio 8.1 10-20 Random Glucose 467 70-99 mg/dl Lactic Acid Level 16.1 0.4-2.0 mmol/L Calcium Level 10.4 8.5-10.1 mg/dl Total Bilirubin 0.3 0.2-1 mg/dl Aspartate Amino Transf (AST/SGOT) 63 15-37 U/L Alanine Aminotransferase (ALT/SGPT) 54 12-78 U/L Alkaline Phosphatase 104 45-117 U/L Total Protein 6.2 6.4-8.2 gm/dl Albumin 3.4 3.4-5.0 gm/dl Globulin 2.8 2.5-4.0 gm/dl Albumin/Globulin Ratio 1.2 0.9-2 Beta-Hydroxybutyric Acid 2.31 0.2-2.81 mg/dL Chemistry Specimen Hemolysis Salicylates Level < 1.7 2.8-20 mg/dl Acetaminophen Level < 2 10-30 ug/ml Ethyl Alcohol mg/dL < 3.0 0-3 mg/dl Bedside Hemoglobin 14.6 14.0-18.0 g/dl Bedside Hematocrit 43 42-52 % Bedside Sodium 141 135-144 mEq/L Bedside Potassium 4.2 3.3-5.0 mEq/L Bedside Chloride 100 101-112 mEq/L Bedside Total CO2 19 24-31 mEq/l Bedside Blood Urea Nitrogen 24 7-18 mg/dl Bedside Creatinine 1.9 0.6-1.3 mg/dl Bedside Glucose (other) 459 70-99 mg/dl Bedside Ionized Calcium (Katherine) 1.32 1.12-1.32 mmol/l Urine Color YELLOW Urine Appearance CLEAR CLEAR Urine pH 5.0 4.5-7.5 Urine Specific [place] 1.028 1.000-1.030 Urine Protein NEG NEG Urine Glucose (UA) NEG NEG Urine Ketones NEG NEG Urine Occult Blood NEG NEG Urine Nitrite NEG NEG Urine Bilirubin NEG NEG Urine Urobilinogen NEG NEG Urine Leukocyte Esterase NEG NEG Urine Opiates Screen NEG NEG Urine Methadone, Qualitative NEG NEG Urine Barbiturates NEG NEG Urine Phencyclidine (PCP) Level NEG NEG Ur Amphetamine/Methamphetamine NEG NEG MDMA (Ecstasy) Screen NEG NEG Urine Benzodiazepines Screen POS NEG Urine Cocaine Metabolite NEG NEG Urine Marijuana (THC) POS NEG Arterial Blood pH 6.86 7.35-7.45 Arterial Blood Partial Pressure CO2 87 35-46 mmHg Arterial Blood Partial Pressure O2 122 80-95 mm/Hg Arterial Blood HCO3 15 19-24 mmol/L Arterial Blood Oxygen Saturation 94.7 90-95 % Arterial Blood Base Excess -19.1 -9-1.8 mEq/L Arterial Blood Gas Delivery 100% Keon Test POS POS Test 10/15/16 01:26 10/15/16 02:48 10/15/16 04:09 10/15/16 04:25 Range/Units Bedside Hemoglobin 11.2 14.0-18.0 g/dl Bedside Hematocrit 33 42-52 % Bedside Blood Gas pH (LAB) 7.01 7.14 7.18 7.20 7.35-7.45 Bedside Blood Gas pCO2 (LAB) 69 55 44 44 35-46 mmHg Bedside Blood Gas pO2 (LAB) 189 40 < 32 < 32 80-95 mmHg Bedside Blood Gas HCO3 (LAB) 18 20 18 19 19-24 meq/L Bedside Blood Gas Total CO2 20 22 19 20 24-31 mEq/l Bedside Blood Gas Base Excess (LAB) -13.0 -10.0 -12.0 -10.0 -9-1.8 meq/L Bedside Blood Gas O2 Saturation 99.0 73.0 64.0 66.0 90-95 % Bedside Sodium 141 135-144 mEq/L Bedside Potassium 5.3 3.3-5.0 mEq/L Blood Gas Sample Site L Radial R Radial R Radial Keon Test Pass Pass Pass Oxygen Delivery Device Ventilator Ventilator Ventilator Bedside Oxygen Rate (breaths/min) 20 20 20 Blood Gas Minute Ventilation 12.8 13.0 13.0 Bedside FiO2 100 100 100 % Blood Gas Tidal Volume 640 700 700 Blood Gas PEEP 10 10 10 Test 10/15/16 04:37 10/15/16 05:34 10/15/16 06:20 Range/Units Blood Gas Sample Site L Radial Bedside Blood Gas pH (LAB) 7.19 7.35-7.45 Bedside Blood Gas pCO2 (LAB) 44 35-46 mmHg Bedside Blood Gas pO2 (LAB) < 32 80-95 mmHg Bedside Blood Gas HCO3 (LAB) 18 19-24 meq/L Bedside Blood Gas Total CO2 20 24-31 mEq/l Bedside Blood Gas Base Excess (LAB) -11.0 -9-1.8 meq/L Bedside Blood Gas O2 Saturation 61.0 90-95 % Keon Test Pass Oxygen Delivery Device Ventilator Bedside Oxygen Rate (breaths/min) 20 Blood Gas Minute Ventilation 13.0 Bedside FiO2 100 % Blood Gas Tidal Volume 700 Blood Gas PEEP 10 Prothrombin Time 15.9 9.0-12.0 SECONDS Prothromb Time International Ratio 1.5 0.9-1.1 Activated Partial Thromboplast Time 31.3 21.0-31.0 SECONDS Partial Thromboplastin Ratio 1.2 Sodium Level 147 136-145 mmol/L Potassium Level 4.9 3.5-5.1 mmol/L Chloride Level 116 98-107 mmol/L Carbon Dioxide Level 19 21-32 mmol/L Anion Gap 12.0 3-11 mmol/L Blood Urea Nitrogen 24 7-18 mg/dl Creatinine 2.10 0.60-1.40 mg/dl Est Creatinine Clear Calc Drug Dose 60.6 ml/min Estimated GFR () 50.3 Estimated GFR (Non- 43.4 BUN/Creatinine Ratio 11.4 10-20 Random Glucose 225 70-99 mg/dl Calcium Level 7.4 8.5-10.1 mg/dl Ionized Calcium 1.14 1.12-1.32 mmol/l Magnesium Level 1.8 1.8-2.4 mg/dl Bedside Glucose 170 70-99 mg/dl Microbiology Results 10/15/16 MRSA DNA Surveillance Screen - Final, Complete Specimen Negative for MRSA by DNA Probe Impression Assessment and Plan 21-year-old male brought to the ER in cardiac arrest after he was found unresponsive at his home. Was intubated on the field. Cardiac arrest likely sec to overdose - Urine toxicology positive for benzodiazepines and marijuana - Hypothermic protocol initiated Respiratory failure: - s/p intubation on the field - initial ABG: Ph 6.86, Pco2 87, Po2 122, Hco3 15 - Ventilator PEEP 10, FIO2 100, TV 550 RR 20 - Hco3 drip started Hypotension: - Continue IVF - started on levophed drip Full Code Dispo: admitted to ICU Attending Addendum: I physically seen and examined this patient, have supervised the medical residents activities, and agree with the H&P as noted above with the following exceptions: NONE The patient is intubated, nonresponsive, and has not received any sedation in the field or in the ED. HEENT-- mucous membranes and oropharynx dry. Neck--supple, no JVD or bruits, thyroid normal, trachea midline, no adenopathy. Heart--tachycardic and regular no murmurs, rubs or gallops. Lungs--coarse rhonchi bilaterally. Abdomen--normal bowel sounds and soft, nontender and nondistended, no hernias or masses, no organomegaly. Extremities--no cyanosis, clubbing or edema. There are good distal pulses b/l. Dermatologic--begun on hypothermic protocol. Neurologic--no corneal reflex, pupils lethargic, nonresponsive to painful and/ or noxious stimuli. Rheumatologic--deferred Psychiatric--nonresponsive Assessment and Plan: 1. Cardiac arrest in the field/intubated for airway protection/severe metabolic and respiratory acidosis with a pH 6.86 in the emergency department/ presumptive drug overdose with UDS positive for benzodiazepines and marijuana. The patient started on levophed drip per protocol, bicarbonate drip, vancomycin IV per renal dosing, Zosyn 4.5 g IV every 6 hours, levofloxacin 750 mg IV daily. Continue hypothermic protocol begun in the emergency department. Initial ventilator settings: Assist control, rate 20, tidal volume 550, FiO2 100 %, and PEEP 10. We'll follow serial ABGs. Returned Case Inspector consulted. Family has been notified and is en route. Patient has of note received IV Narcan prior to the ICU, and did receive additional Narcan in the ICU as well. Level of Care Critical Care Advanced Directives Existing Living Will: No Existing Power of Skein Bander: No Resuscitation Status FULL RESUSCITATION VTE Prophylaxis VTE Risk Assessment Done? Y/N: Yes Risk Level: Moderate Resident Tracking Resident Involvement: Resident Care Provided Care Provided: Adult Hospital Medicine
[2016-10-15] MEDS ORDERED: LACTATED RINGER'S 1000ML 500 ML IV ONE ×2 (07:35→10:30)
--- NOTE | 2016-10-15 09:21 | Procedure Note ---
Procedure Note Procedure Date Oct 15, 2016. Procedure Description Procedure Name: left femoral vein triple lumen central line Procedure time out: side/site verified, patient ID confirmed, correct procedure Consent obtained: written Time of procedure: 07:30 Performed by: attending Indications: therapeutic Contraindications: none Description: After usual prep the area draped and using the standard sterile technique a triple lumen catheter was introduced in the femoral vein using the catheter over wire technique. No issues with bleeding and no complications seen. The catheter is functional. Complications: none Patient tolerated procedure: well Post-procedure vital signs: reviewed and stable
--- NOTE | 2016-10-15 10:07 | EEG Procedure Note ---
EEG Procedure Note Date of Service Oct 15, 2016. Start / End Times Start Time: 8:28 AM End Time: 8:49 AM Referring Physician Simon Cummins History This is a 21-year-old male who presented in pulmonary cardiac arrest believed to be secondary to medication overdose. Patient is in the ICU, intubated, and unresponsive. EEG for further neurological prognosis and to rule out nonconvulsive status. Home Medication List Scheduled Albuterol (Ventolin Hfa), 2 PUFFS INH QID Clindamycin Phosphate-Benzoyl (Acanya), 1 APPLN TOP BID Montelukast Sodium (Montelukast Sodium), 10 MG PO DAILY Phenytoin Sodium (Dilantin), 100 MG PO TID Sertraline (Zoloft), 50 MG PO DAILY Scheduled PRN Loratadine (Claritin), 10 MG PO DAILY PRN for ALLERGIC REACTION Lorazepam (Ativan), 0.5 MG PO DAILY PRN for Anxiety Inpatient Medication List Current Inpatient Medications Medications (Trade) Dose Ordered Sig/Jose Route Start Time Stop Time Status Last Admin Dose Admin Norepinephrine Bitartrate 8 mg/ Dextrose 508 ml @ 0 mls/hr Q0M PRN IV 10/15/16 06:16 11/14/16 06:15 10/15/16 06:33 36.6 MLS/HR Piperacillin Sod/ Tazobactam Sod 4.5 gm/Dextrose 120 ml @ 30 mls/hr Q6H IV 10/15/16 06:30 10/22/16 06:29 10/15/16 06:46 30 MLS/HR Vancomycin HCl (Consult) 1 ea UD PRN N/A 10/15/16 07:00 11/14/16 06:59 Piperacillin Sod/ Tazobactam Sod (Consult) 1 ea UD PRN N/A 10/15/16 07:00 11/14/16 06:59 Dopamine HCl/ Dextrose 250 ml @ 0 mls/hr Q0M PRN IV 10/15/16 08:45 11/14/16 08:44 Description This is a 21 electrode video EEG with a single channel dedicated to limited EKG. The electrodes were placed in accordance with the International 10-20 system. This EEG was recorded at 3uV/mm sensitivity. Rare sharp IV artifact noted. In addition there was rarely electric pop artifact at T4 and CZ. At the start of this recording the patient was in reported coma. There was no background organization and background activity was diffusely suppressed (<10uV) . Rarely there would be moderate amplitude polymorphic delta/theta activity that did not appear to have any identifiable outside artifact etiology. At 3uV/ mm sensitivity background appeared to have diffuse theta, alpha, and beta activity that is a likely artifactual, but cannot rule out cortical activity. There was no stage changes or sleep transients. Photic stimulation was not done due to mechanical ventilation. Photic stimulation at various frequencies did not produce any abnormalities. There did not appear to be any cortical response or changes to the EEG background to tactile stimulation. Interpretation This is an abnormal routine EEG secondary to severe background disorganization and suppression. There was no electrographic seizures or epileptiform discharges. Clinical Correlation This EEG indicates a severe encephalopathy of nonspecific etiology. This EEG cannot meet EEG criteria for brain secondary to lack of background suppression at 3uV/mm sensitivity. Even though this activity may be artifactual, cannot fully rule out potential background cerebral activity.
[2016-10-15] MEDS: DOPAMINE 400MG / D5W IV PRN ×2 (10:12→15:45)
[2016-10-15 10:26] LABS: ISTAT ALLEN TEST Pass; ISTAT ARTERIAL BLOOD GAS HCO3 25 meq/L (19-24); ISTAT ARTERIAL BLOOD GAS PCO2 64 mmHg (35-46); ISTAT ARTERIAL BLOOD GAS PO2 < 32 mmHg (80-95); ISTAT CARBON DIOXIDE 27 mEq/l (24-31); ISTAT DELIVERY SYSTEM Ventilator; ISTAT FIO2 80 %; ISTAT PEEP 12; ISTAT RATE 24; ISTAT SITE L Radial; VE 12.2; Vt 600
--- NOTE | 2016-10-15 12:18 | Neurology Consultation ---
Neurology Consultation Date of Consultation: Oct 15, 2016. Attending Physician: Timoteo Rubio M.D. Primary Care Physician: Hemanth Razo M.D. Reason for Consultation: Patient is a 21-year-old, who was asked to see the request of Dr. Gilmore, for neurologic consultation regarding post cardiac arrest, question brain History of Present Illness Source: caregiver, hospital records Patient has a history of some anxiety and depression on sertraline. He is also on Dilantin 100 mg 3 times a day for uncertain reasons. I do not have any access to medical records that explain who put him on these medicines and for what reason and I have no access to family members as they are flying in from out of town . He has a history of benzodiazepine abuse. He was last seen to be well about 2215 hours on October 14. He was then found on the ground by his girlfriend who called EMS. When they first arrived there was some very faint pulse and agonal respirations but he then had a cardiac arrest and they perform CPR for approximately 30 minutes. He arrived at the emergency room on October 15 at 0016 hours with a temperature 34.1, pulse 113, blood pressure 137/49, and O2 saturation 76%. He was described as unresponsive with fixed dilated pupils. He had vomitus around his nose and mouth. Chest x-ray was unremarkable. Laboratory studies reveal a glucose of 4 and 67 (was 541 in the field). Liver enzymes were unremarkable and white count was elevated at 14.6. Urine drug screen was positive for benzodiazepines and marijuana. He has been in the ICU and is continuing to be unresponsive. EEG showed severe background slowing in general with possible activity over 3 V per millimeter but this was difficult to be certain because of artifact. No other meaningful activity was noted. Unfortunately, a definitive diagnosis of electrocerebral silence could not be made. His core temperature remains low and his blood pressures been very difficult to support with multiple medications. He remains unresponsive. Past Medical/Surgical History Medical Problems: (1) Cardiac arrest Status: Acute (2) Drug overdose Status: Acute Anxiety and depression History of asthma History of benzodiazepine abuse Post left tibial fracture requiring repair in 2004 Family History No family history could be obtained because the patient is unresponsive and no family members are reachable. Social History No meaningful social history can be obtained as the patient is unresponsive and no family members are reachable Smoking Status: Never smoker Marital Status: single Housing Status: lives with family Occupation Status: student Allergies Coded Allergies: No Known Allergies (Verified , 11/19/04) Current Inpatient Medications Current Inpatient Medications Medications (Trade) Dose Ordered Sig/Jose Route Start Time Stop Time Status Last Admin Dose Admin Piperacillin Sod/ Tazobactam Sod (Consult) 1 ea UD PRN N/A 10/15/16 07:00 11/14/16 06:59 Dopamine HCl/ Dextrose 250 ml @ 0 mls/hr Q0M PRN IV 10/15/16 08:45 11/14/16 08:44 10/15/16 10:12 18 MLS/HR Norepinephrine Bitartrate 16 mg/ Dextrose 516 ml @ 0 mls/hr Q0M PRN IV 10/15/16 10:15 11/14/16 10:14 Piperacillin Sod/ Tazobactam Sod 4.5 gm/Dextrose 120 ml @ 30 mls/hr Q8@0400,1200,2000 IV 10/15/16 12:30 10/15/16 14:31 Piperacillin Sod/ Tazobactam Sod 4.5 gm/Dextrose 120 ml @ 30 mls/hr Q8@0600,1400,2200 IV 10/15/16 22:00 10/22/16 21:59 Piperacillin Sod/ Tazobactam Sod 4.5 gm/Dextrose 120 ml @ 30 mls/hr Q8@0600,1400,2200 IV 10/15/16 14:00 10/15/16 21:59 Review of Systems Review of systems cannot be obtained as the patient is unresponsive Physical Exam Vital Signs (Past 24 Hrs): Date Time Temp Pulse Resp B/P (MAP) Pulse Ox O2 Delivery O2 Flow Rate FiO2 10/15/16 11:21 80 10/15/16 11:00 32.3 122 24 101/47 (65) 95 Mechanical Ventilator 100 10/15/16 10:00 32.1 120 24 99/51 (67) 97 Mechanical Ventilator 100 10/15/16 09:00 32.0 110 24 99/46 (63) 92 Mechanical Ventilator 100 10/15/16 08:05 31.9 100 24 87/45 (59) 91 Mechanical Ventilator 100 10/15/16 08:00 91 Mechanical Ventilator 100 10/15/16 08:00 100 10/15/16 07:44 100 10/15/16 07:00 32.1 95 24 80/49 (59) 90 Mechanical Ventilator 100 10/15/16 06:46 97 24 94/51 (65) 89 10/15/16 06:45 96 24 89 10/15/16 06:41 96 24 92/50 (64) 90 10/15/16 06:40 97 24 89 10/15/16 06:38 97 24 84/51 (62) 90 10/15/16 06:36 98 24 62/45 (51) 90 10/15/16 06:35 97 24 90 10/15/16 06:31 98 28 69/46 (54) 91 10/15/16 06:30 96 28 90 10/15/16 06:26 97 28 81/51 (61) 88 10/15/16 06:25 96 28 87 10/15/16 06:20 98 22 89 10/15/16 06:19 97 22 78/45 (56) 88 10/15/16 06:16 99 22 67/34 (45) 10/15/16 06:15 98 22 90 10/15/16 06:10 99 22 90 10/15/16 06:05 99 22 91 10/15/16 06:01 99 22 67/45 (52) 91 10/15/16 06:00 32.4 99 22 67/47 (54) 90 Mechanical Ventilator 100 10/15/16 06:00 100 22 91 10/15/16 05:23 100 10/15/16 05:00 32.2 102 22 81/53 (62) 91 Mechanical Ventilator 100 10/15/16 04:00 100 10/15/16 04:00 Mechanical Ventilator 100 10/15/16 04:00 32.0 106 20 85/62 (70) 89 Mechanical Ventilator 100 10/15/16 03:00 32.3 108 20 94/63 (73) 90 Mechanical Ventilator 100 10/15/16 02:46 32.6 109 20 84/55 (60) 88 10/15/16 02:30 100 10/15/16 02:30 88 Mechanical Ventilator 80 10/15/16 02:15 32.9 113 20 105/54 87 Mechanical Ventilator 100 10/15/16 02:12 33.0 113 20 102/51 88 Mechanical Ventilator 100 10/15/16 02:00 33.1 10/15/16 01:58 100 10/15/16 01:56 33.1 113 20 91/42 90 10/15/16 01:51 112 15 92/42 90 10/15/16 01:49 81/44 10/15/16 01:46 109 25 71/43 88 10/15/16 01:45 33.1 10/15/16 01:41 108 25 86/40 93 10/15/16 01:37 80 10/15/16 01:36 106 25 81/36 94 10/15/16 01:31 103 25 85/34 96 10/15/16 01:26 103 25 85/36 96 10/15/16 01:21 101 25 87/37 97 10/15/16 01:16 97 25 79/31 95 10/15/16 01:14 94 10/15/16 01:11 91 30 74/30 91 10/15/16 01:06 88 10/15/16 01:06 88 29 82/47 90 10/15/16 01:01 86 20 74/29 90 10/15/16 01:00 34.1 113 20 137/49 76 Ambu-Bag 15.0 10/15/16 00:56 85 74/44 92 10/15/16 00:51 87 81/35 92 10/15/16 00:46 98 99/46 95 10/15/16 00:44 100 10/15/16 00:41 121 147/95 93 10/15/16 00:38 101 10/15/16 00:36 101 80/37 91 10/15/16 00:35 77/44 10/15/16 00:31 103 79/42 88 10/15/16 00:26 108 98/48 83 10/15/16 00:21 125 119/66 76 10/15/16 00:19 137/49 10/15/16 00:18 113 Patient is lying in bed without any spontaneous movement. He is on the ventilator and is completely dependent on a ventilator with no spontaneous respirations. Temperature is 33 core. Blood pressure is being supported with medication and currently is 101/47, P 122, 02 sat 100%. He has no response to clap, shout, or shake. Eyes (passively. Pupils are 8 mm bilaterally and fixed. Head moves easily as neck is supple. He has no oculocephalics and eyes are fixed in the direction of the head turn. There are no corneal reflexes. There is no response to gag stimulation or cough with suctioning. 30 cc of ice water in each ear separately produces no eye movement and eyes remained fixed. There is no spontaneous movement of the limbs. Limbs have decreased tone diffusely. There is no reaction to deep pain in all 4 limbs. There is no reaction to pain stimulating the supraorbital notches or face. Reflexes are absent in all 4 limbs. Toes are neutral to plantar stimulation bilaterally. Laboratory Results Past 24 Hours: 10/15/16 00:22 Red Blood Count 4.74, Mean Corpuscular Volume 98.7, Mean Corpuscular Hemoglobin 30.6, Mean Corpuscular Hemoglobin Concent 31.0, Mean Platelet Volume 11.9, Neutrophils (%) (Auto) 14.9, Lymphocytes (%) (Auto) 78.4, Monocytes (%) (Auto) 4.1, Eosinophils (%) (Auto) 1.1, Basophils (%) (Auto) 0.3, Neutrophils # (Auto) 2.24, Lymphocytes # (Auto) 11.73, Monocytes # (Auto) 0.61, Eosinophils # (Auto) 0.16, Basophils # (Auto) 0.04 Test 10/15/16 00:22 10/15/16 00:26 10/15/16 00:35 10/15/16 00:40 White Blood Count 14.96 K/uL (4.8-10.8) Red Blood Count 4.74 M/uL (4.7-6.1) Hemoglobin 14.5 g/dL (14.0-18.0) Hematocrit 46.8 % (42-52) Mean Corpuscular Volume 98.7 fL (80-100) Mean Corpuscular Hemoglobin 30.6 pg (25-34) Mean Corpuscular Hemoglobin Concent 31.0 g/dl (32-36) Platelet Count 218 K/uL (130-400) Mean Platelet Volume 11.9 fL (7.4-10.4) Neutrophils (%) (Auto) 14.9 % Lymphocytes (%) (Auto) 78.4 % Monocytes (%) (Auto) 4.1 % Eosinophils (%) (Auto) 1.1 % Basophils (%) (Auto) 0.3 % Neutrophils # (Auto) 2.24 K/uL (1.4-6.5) Lymphocytes # (Auto) 11.73 K/uL (1.2-3.4) Monocytes # (Auto) 0.61 K/uL (0.11-0.59) Eosinophils # (Auto) 0.16 K/uL (0-0.5) Basophils # (Auto) 0.04 K/uL (0-0.2) RDW Standard Deviation 45.7 fL (36.4-46.3) RDW Coefficient of Variation 12.7 % (11.5-14.5) Immature Granulocyte % (Auto) 1.2 % Immature Granulocyte # (Auto) 0.18 K/uL (0.00-0.02) Echinocytes 1+ Lactic Acid Level 16.1 mmol/L (0.4-2.0) Total Bilirubin 0.3 mg/dl (0.2-1) Aspartate Amino Transf (AST/SGOT) 63 U/L (15-37) Alanine Aminotransferase (ALT/SGPT) 54 U/L (12-78) Alkaline Phosphatase 104 U/L (45-117) Total Protein 6.2 gm/dl (6.4-8.2) Albumin 3.4 gm/dl (3.4-5.0) Globulin 2.8 gm/dl (2.5-4.0) Albumin/Globulin Ratio 1.2 (0.9-2) Beta-Hydroxybutyric Acid 2.31 mg/dL (0.2-2.81) Chemistry Specimen Hemolysis Salicylates Level < 1.7 mg/dl (2.8-20) Acetaminophen Level < 2 ug/ml (10-30) Ethyl Alcohol mg/dL < 3.0 mg/dl (0-3) Bedside Chloride 100 mEq/L (101-112) Bedside Total CO2 19 mEq/l (24-31) Bedside Blood Urea Nitrogen 24 mg/dl (7-18) Bedside Creatinine 1.9 mg/dl (0.6-1.3) Bedside Glucose (other) 459 mg/dl (70-99) Bedside Ionized Calcium (Katherine) 1.32 mmol/l (1.12-1.32) Urine Color YELLOW Urine Appearance CLEAR (CLEAR) Urine pH 5.0 (4.5-7.5) Urine Specific [place] 1.028 (1.000-1.030) Urine Protein NEG (NEG) Urine Glucose (UA) NEG (NEG) Urine Ketones NEG (NEG) Urine Occult Blood NEG (NEG) Urine Nitrite NEG (NEG) Urine Bilirubin NEG (NEG) Urine Urobilinogen NEG (NEG) Urine Leukocyte Esterase NEG (NEG) Urine Opiates Screen NEG (NEG) Urine Methadone, Qualitative NEG (NEG) Urine Barbiturates NEG (NEG) Urine Phencyclidine (PCP) Level NEG (NEG) Ur Amphetamine/Methamphetamine NEG (NEG) MDMA (Ecstasy) Screen NEG (NEG) Urine Benzodiazepines Screen POS (NEG) Urine Cocaine Metabolite NEG (NEG) Urine Marijuana (THC) POS (NEG) Arterial Blood pH 6.86 (7.35-7.45) Arterial Blood Partial Pressure CO2 87 mmHg (35-46) Arterial Blood Partial Pressure O2 122 mm/Hg (80-95) Arterial Blood HCO3 15 mmol/L (19-24) Arterial Blood Oxygen Saturation 94.7 % (90-95) Arterial Blood Base Excess -19.1 mEq/L (-9-1.8) Arterial Blood Gas Delivery 100% [place] Test POS (POS) Test 10/15/16 01:26 10/15/16 05:34 10/15/16 06:20 10/15/16 08:15 Bedside Hemoglobin 11.2 g/dl (14.0-18.0) Bedside Hematocrit 33 % (42-52) Bedside Sodium 141 mEq/L (135-144) Bedside Potassium 5.3 mEq/L (3.3-5.0) Est Creatinine Clear Calc Drug Dose 60.6 ml/min Bedside Glucose 170 mg/dl (70-99) Phenytoin (Dilantin) Level < 0.4 mcg/mL (10-20) Test 10/15/16 09:29 10/15/16 10:13 10/15/16 11:56 Troponin I 1.250 ng/ml (0-0.045) Blood Gas Sample Site L Radial Bedside Blood Gas pH (LAB) 7.20 (7.35-7.45) Bedside Blood Gas pCO2 (LAB) 64 mmHg (35-46) Bedside Blood Gas pO2 (LAB) < 32 mmHg (80-95) Bedside Blood Gas HCO3 (LAB) 25 meq/L (19-24) Bedside Blood Gas Total CO2 27 mEq/l (24-31) Bedside Blood Gas Base Excess (LAB) -3.0 meq/L (-9-1.8) Bedside Blood Gas O2 Saturation 38.0 % (90-95) [place] Test Pass Oxygen Delivery Device Ventilator Bedside Oxygen Rate (breaths/min) 24 Blood Gas Minute Ventilation 12.2 Bedside FiO2 80 % Blood Gas Tidal Volume 600 Blood Gas PEEP 12 Date/Time Source Procedure Growth Status 10/15/16 03:00 Nasal MRSA DNA Surveillance Screen - Final Specimen Negative for MRSA by DNA Probe Complete Impression Post cardiac arrest secondary to presumed benzodiazepine drug overdose. Currently he has no signs of cerebral, brainstem, or spinal cord activity. He is completely ventilator dependent and there is considerable medication being given in an effort to support his blood pressure. EEG could not be considered technically flat because of artifact contamination, but was very close to electrocerebral silence. His core temperature remains at 33. Overall, there is a grave prognosis for this patient has had no central nervous system activity now for over 12 hours. Plan 1. If the patient does not have another cardiac arrest I will repeat examination and EEG tomorrow morning. Please contact me if I can be of further assistance on this case. I spoke with Dr. Cummins regarding this case including neurologic status and prognosis. I have personally spent 60 minutes with this case including direct patient care and discussion with patient's uncles at the bedside.
[2016-10-15 12:22] LABS: INR 1.6 (0.9-1.1); PARTIAL THROMBOPLASTIN RATIO 1.3; PROTHROMBIN TIME (PATIENT) 17.6 SECONDS (9.0-12.0)
[2016-10-15] MEDS ORDERED: PIPERACILL/TAZOBAC IV 4.5 GM in DEXTROSE 5% 100ML IV SCH ×2 (12:30→14:00)
[2016-10-15 13:03] LABS: BUN/CREATININE RATIO 9.8 (10-20); CALCIUM 6.8 mg/dl (8.5-10.1); CREATININE 2.5 mg/dl (0.60-1.40); MAGNESIUM 1.5 mg/dl (1.8-2.4); POTASSIUM 2.8 mmol/L (3.5-5.1)
[2016-10-15 13:15] LABS: BETA-HYDROXYBUTYRATE 1.08 mg/dL (0.2-2.81)
[2016-10-15] MEDS ORDERED: POTASSIUM CHLR 20 MEQ / WTR 20 MEQ in PREMIXED WATER 100 ML IV ONE ×2 (14:00→18:30)
[2016-10-15] MEDS ORDERED: MAGNESIUM SULFATE 1GM / D5W 1 GM in PREMIXED IN D5W 100 ML IV ONE ×2 (14:30→18:30)
[2016-10-15] MEDS ORDERED: NALOXONE HCL INJ 0.4 MG/1 ML VIAL/CARP IV ONE (14:42)
[2016-10-15] MEDS ORDERED: HYDROCORTISONE IV 100 MG in SYRINGE 0 ML IV ONE (14:45)
[2016-10-15 14:57] LABS: ISTAT ALLEN TEST Pass; ISTAT ARTERIAL BLOOD GAS HCO3 19 meq/L (19-24); ISTAT ARTERIAL BLOOD GAS PCO2 61 mmHg (35-46); ISTAT ARTERIAL BLOOD GAS PO2 < 32 mmHg (80-95); ISTAT ARTERIAL BLOOD GAS pH 7.08 (7.35-7.45); ISTAT CARBON DIOXIDE 21 mEq/l (24-31); ISTAT DELIVERY SYSTEM Ventilator; ISTAT FIO2 80 %; ISTAT PEEP 12; ISTAT RATE 24; ISTAT SITE R Radial; VE 13.7; Vt 600
[2016-10-15] MEDS ORDERED: LACTATED RINGER'S 1000ML 500 ML IV SCH (15:45)
--- NOTE | 2016-10-15 16:23 | Procedure Note ---
Procedure Note Procedure Date Oct 15, 2016. Procedure Description Procedure Name: right radial arterial line Procedure time out: side/site verified, patient ID confirmed, correct procedure Consent obtained: written Time of procedure: 13:00 Performed by: attending Indications: therapeutic Contraindications: none Description: After usual prep and assistance of the ultrasound machine the right radial artery was located and an arrow catheter introduced without difficulty. Standard secure technique. Complications: none Patient tolerated procedure: well Post-procedure vital signs: reviewed and stable
--- NOTE | 2016-10-15 17:03 | Progress Note ---
Progress Note Date of Service Oct 15, 2016. (Jorge Garcia MD) Progress Note 21 year old male with overdose of substance of abuse. Found unresponsive yesterday evening by EMS and in the ICU on ventilator and pressors. EEG showed very minimal activity. Patient with very poor prognosis S: Patient with history of anxiety and depression on sertraline. Found yesterday evening with faint pulse and agonal respirations. Brought to the ED with sats of 76, BP of 137/49, pulse of 113 and temp of 34.1. Urine drug screen was positive for benzos and marijuana. Is in the ICU and continues to be unresponsive. EEG showed background slowing with possible activity but difficult to ascertain due to artifact. His temp continues to be low despite multiple medications. O: 32.4, 94/51, 24, 89, on FiO2 of 100 Physical exam deferred as family was at the bedside A/P Continue care with pressors as well as IV antibiotics. Dr. Spaulding will repeat EEG in the AM if no changes occur overnight. Family flying in from [place] this evening at around 8pm. (Jorge Garcia MD) Resident Physician Supervision Note: I interviewed and examined the patient. Discussed with Dr. Garcia and agree with findings and plan as documented in the note. Any exceptions or clarifications are listed here: None Documented By: Barak Dave d/ricky family (uncle present -notes pt's parents and siblings will hopefully be here by 8p), answered all questions, offered empathy and support. explained current med management and team approach, explained unfortunately grim prognosis. they're all aware and understanding. express extreme appreciation of all care given to pt thus far. ROS unobtainable from pt. HPI unobtainable. on ventilator, no appearance of distress. no spontaneous movement,s no purposeful or even unpurposeful movements. presumed anoxic brain injury - overdose related. ongoing supportive care, but very grim prognosis aspiration pneumonia - continue abx. severe mixed respiratory and metabolic acidosis - from respiratory arrest and circulatory arrest. has improved some with supportive care and vent support. shock - from all of above. ongoing fluid support and pressors. overall grim prognosis, continue treatment and supportive care. EEG again in AM , ongoing neurologic assessments for any meaningful function. (Barak Dave, Corinna.)
[2016-10-15] MEDS ORDERED: PHARMACY GLYCEMIC MGMT CONSULT SCH (17:06)
[2016-10-15 17:09] LABS: INR 1.6 (0.9-1.1); PARTIAL THROMBOPLASTIN RATIO 1.4; PROTHROMBIN TIME (PATIENT) 17.4 SECONDS (9.0-12.0)
[2016-10-15] MEDS: NOREPINEPHRINE BIT INJ 16 MG in DEXTROSE 5% 500ML 500 ML IV PRN ×5 (17:09→22:27)
[2016-10-15] MEDS ORDERED: INSULIN REGULAR 250 UNITS in SODIUM CHLORIDE 0.9% 250ML 250 ML IV SCH (17:14)
[2016-10-15] MEDS ORDERED: DEXTROSE 50% 50 ML SYR IV PRN (17:15)
[2016-10-15] MEDS ORDERED: INSULIN HUMAN REGULAR IV BOLUS 3.5 UNIT in SYRINGE 0 ML IV SCH (17:15)
[2016-10-15] MEDS ORDERED: GLUCAGON FOR INJ 1 MG VIAL SQ PRN (17:15)
[2016-10-15] MEDS ORDERED: GLUCOSE 40% GEL 15 GM TUBE PO PRN (17:15)
[2016-10-15] MEDS: INSULIN ASPART 100 UNITS/ML 3 ML PEN SC SCH ×2 (17:15→21:00)
[2016-10-15] MEDS ORDERED: INSULIN HUMAN REGULAR IV BOLUS 1 UNIT in SYRINGE 0 ML IV SCH (17:15)
[2016-10-15] MEDS ORDERED: GLUCOSE 10 TABS/TUBE PO PRN (17:15)
[2016-10-15 17:17] LABS: ISTAT ARTERIAL BLOOD GAS HCO3 18 meq/L (19-24); ISTAT ARTERIAL BLOOD GAS PCO2 55 mmHg (35-46); ISTAT ARTERIAL BLOOD GAS PO2 37 mmHg (80-95); ISTAT ARTERIAL BLOOD GAS pH 7.12 (7.35-7.45); ISTAT CARBON DIOXIDE 20 mEq/l (24-31); ISTAT DELIVERY SYSTEM Ventilator; ISTAT FIO2 100 %; ISTAT PEEP 12; ISTAT RATE 28; ISTAT SITE Art Line; Vt 650
[2016-10-15 17:32] LABS: BUN/CREATININE RATIO 8.6 (10-20); CALCIUM 6.8 mg/dl (8.5-10.1); CREATININE 2.8 mg/dl (0.60-1.40); MAGNESIUM 1.5 mg/dl (1.8-2.4); POTASSIUM 2.8 mmol/L (3.5-5.1)
[2016-10-15] MEDS: HYDROCORTISONE IV 100 MG in SYRINGE 0 ML IV SCH ×2 (17:36→23:19)
[2016-10-15 17:44] LABS: BETA-HYDROXYBUTYRATE 1.01 mg/dL (0.2-2.81)
[2016-10-15 19:29] LABS: ISTAT ARTERIAL BLOOD GAS HCO3 18 meq/L (19-24); ISTAT ARTERIAL BLOOD GAS PCO2 44 mmHg (35-46); ISTAT ARTERIAL BLOOD GAS PO2 35 mmHg (80-95); ISTAT ARTERIAL BLOOD GAS pH 7.21 (7.35-7.45); ISTAT CARBON DIOXIDE 19 mEq/l (24-31); ISTAT DELIVERY SYSTEM Ventilator; ISTAT FIO2 100 %; ISTAT PEEP 12; ISTAT RATE 28; ISTAT SITE Art Line; VE 18.4; Vt 700
[2016-10-15 20:20] LABS: INR 1.5 (0.9-1.1); PARTIAL THROMBOPLASTIN RATIO 1.4; PROTHROMBIN TIME (PATIENT) 16.1 SECONDS (9.0-12.0)
[2016-10-15 20:44] LABS: BUN/CREATININE RATIO 8.4 (10-20); CREATININE 2.8 mg/dl (0.60-1.40); MAGNESIUM 1.6 mg/dl (1.8-2.4); POTASSIUM 3.1 mmol/L (3.5-5.1)
[2016-10-15 21:02] LABS: BETA-HYDROXYBUTYRATE 0.92 mg/dL (0.2-2.81)
[2016-10-15] MEDS: PIPERACILL/TAZOBAC IV 4.5 GM in DEXTROSE 5% 100ML IV SCH (22:17)
--- NOTE | 2016-10-15 22:31 | Progress Note ---
Progress Note Date of Service Oct 15, 2016. Progress Note Resident Physician Coverage - NIGHT CALL 9:45pm - The patient's parents arrived. 10pm - I went to introduce myself, they were understandably upset with the situation. Questions were answered, will discuss code status w/them in next few hours. 11pm - The patients other family members arrived. I asked the parents and uncle to come with me to the conference room. They had no questions about his clinical course thus far, though it was explained how his brainstem function was minimal based off of multiple tests today. I brought up his code status ( currently Full) and described chest compressions to them if he were to go into asystole. Mom reported she wanted him to remain a full code for today so they felt that something had been tried while they were here. She also asked about other grievance counselling, which I reported we would have to get our social workers to arrange, and they declined cottonseed meat presser support at this time. 2am- I checked on patient again. Siblings had left, parents were at bedside. No acute changes apart from electrolyte imbalances. Magnesium replaced IV. Will continue to monitor.
[2016-10-15] MEDS ORDERED: MAGNESIUM SULFATE 1GM / D5W 1 GM in PREMIXED IN D5W 100 ML IV STA (22:48)
[2016-10-16] VITALS (41 sets, daily range): BP systolic 99–240; BP diastolic 56–239; PULSE 124–134; TEMP 34.4–36.8; O2SAT 93–97
[2016-10-16] MEDS: NOREPINEPHRINE BIT INJ 16 MG in DEXTROSE 5% 500ML 500 ML IV PRN ×4 (00:03→11:02)
[2016-10-16 00:54] LABS: INR 1.5 (0.9-1.1); PARTIAL THROMBOPLASTIN RATIO 1.4; PROTHROMBIN TIME (PATIENT) 16.1 SECONDS (9.0-12.0)
[2016-10-16 01:06] LABS: BUN/CREATININE RATIO 8.3 (10-20); CALCIUM 7.1 mg/dl (8.5-10.1); CREATININE 2.9 mg/dl (0.60-1.40); MAGNESIUM 1.7 mg/dl (1.8-2.4); POTASSIUM 2.9 mmol/L (3.5-5.1)
[2016-10-16 01:15] LABS: BETA-HYDROXYBUTYRATE 0.86 mg/dL (0.2-2.81)
[2016-10-16] MEDS ORDERED: NURSING VERBAL MED ORDER ONE (01:30)
[2016-10-16] MEDS: MAGNESIUM SULFATE 1GM / D5W 1 GM in PREMIXED IN D5W 100 ML IV SCH ×2 (01:48→03:00)
[2016-10-16 04:20] LABS: INR 1.4 (0.9-1.1); PARTIAL THROMBOPLASTIN RATIO 1.3; PROTHROMBIN TIME (PATIENT) 15.3 SECONDS (9.0-12.0)
[2016-10-16 04:31] LABS: CALCIUM 7.1 mg/dl (8.5-10.1); POTASSIUM 3.3 mmol/L (3.5-5.1)
[2016-10-16 04:43] LABS: PHOSPHORUS 1.4 mg/dl (2.5-4.9)
[2016-10-16] MEDS: HYDROCORTISONE IV 100 MG in SYRINGE 0 ML IV SCH (06:02)
[2016-10-16] MEDS: PIPERACILL/TAZOBAC IV 4.5 GM in DEXTROSE 5% 100ML IV SCH (06:02)
[2016-10-16 06:39] LABS: MEAN CELL VOLUME 87.3 fL (80-100); MEAN CORPUSCULAR HEMOGLOBIN 31.2 pg (25-34); MEAN CORPUSCULAR HGB CONC 35.7 g/dl (32-36); MEAN PLATELET VOLUME 11.2 fL (7.4-10.4); PLATELET COUNT 156 K/uL (130-400); RED BLOOD COUNT 5.04 M/uL (4.7-6.1); WHITE BLOOD COUNT 12.81 K/uL (4.8-10.8)
[2016-10-16 06:40] LABS: BASO % 0.1 %; BASO ABS # 0.01 K/uL (0-0.2); COMPLETE YES; IG% 0.2 %; LYMPH % 7.5 %; LYMPH ABS # 0.96 K/uL (1.2-3.4); MONO % 2.4 %; NEUT % 89.8 %
[2016-10-16] MEDS: INSULIN ASPART 100 UNITS/ML 3 ML PEN SC SCH ×2 (07:20→12:00)
--- NOTE | 2016-10-16 07:26 | Family Medicine Progress Note ---
Progress Note Date of Service Oct 16, 2016. Objective Vital Signs Date Time Temp Pulse Resp B/P (MAP) Pulse Ox O2 Delivery O2 Flow Rate FiO2 10/16/16 07:00 36.5 133 28 120/66 (84) 96 Mechanical Ventilator 100 119/74 (89) 10/16/16 06:56 36.5 132 28 119/74 (83) 96 120/66 (85) 10/16/16 06:46 36.4 133 28 (86) 96 119/68 10/16/16 06:31 36.4 132 28 (89) 95 124/70 10/16/16 06:16 36.3 132 28 (85) 96 120/66 10/16/16 06:01 36.3 134 28 118/69 (87) 96 120/68 (84) 10/16/16 06:00 36.2 131 28 120/68 (85) 96 Mechanical Ventilator 118/69 (85) 10/16/16 05:47 36.2 131 28 (79) 94 111/61 10/16/16 05:40 100 10/16/16 05:32 36.1 130 28 (80) 95 111/62 10/16/16 05:17 36.0 129 28 (71) 94 99/56 10/16/16 05:01 35.9 132 28 128/77 (87) 94 124/67 (87) 10/16/16 05:00 35.9 132 28 124/67 (86) 94 Mechanical Ventilator 100 128/77 (94) 10/16/16 04:47 35.9 131 28 (86) 94 121/66 10/16/16 04:32 35.8 130 28 (86) 94 120/67 10/16/16 04:17 35.7 130 28 (85) 94 121/66 10/16/16 04:01 35.6 129 28 123/73 (97) 94 116/64 (83) 10/16/16 04:00 35.6 128 28 116/64 (81) 94 Mechanical Ventilator 123/73 (90) 10/16/16 04:00 Mechanical Ventilator 100 10/16/16 04:00 100 10/16/16 03:47 35.6 127 28 (84) 95 118/66 10/16/16 03:32 35.5 127 28 (82) 95 114/64 10/16/16 03:17 35.4 127 28 (81) 94 112/63 10/16/16 03:01 35.3 126 28 116/71 (81) 95 112/63 (81) 10/16/16 03:00 35.3 127 28 111/63 (79) 94 Mechanical Ventilator 100 116/71 (86) 10/16/16 02:46 35.2 127 28 (80) 94 110/63 10/16/16 02:31 35.2 127 28 (78) 95 107/61 10/16/16 02:16 35.1 126 28 (77) 95 106/62 10/16/16 02:07 100 10/16/16 02:01 34.9 126 28 114/67 (85) 95 109/64 (80) 10/16/16 02:00 34.9 127 28 109/64 (79) 95 Mechanical Ventilator 114/67 (83) 10/16/16 01:49 34.9 126 28 (74) 96 101/59 10/16/16 01:34 34.8 126 28 (81) 96 112/65 10/16/16 01:19 34.7 126 28 (80) 96 110/63 10/16/16 01:04 34.6 126 28 (88) 95 120/70 10/16/16 01:04 34.6 126 28 (88) 95 120/70 10/16/16 01:01 34.6 126 28 116/71 (82) 96 110/65 10/16/16 01:00 34.6 124 28 116/67 (83) 96 Mechanical Ventilator 100 116/71 (86) 10/16/16 00:49 34.5 129 28 (106) 97 146/87 10/16/16 00:34 34.5 128 28 (104) 96 144/85 10/16/16 00:19 34.4 127 28 (110) 96 112/108 10/16/16 00:04 34.4 126 28 (239) 94 240/239 10/16/16 00:03 34.4 125 28 (87) 94 120/70 10/16/16 00:01 Mechanical Ventilator 100 10/16/16 00:01 100 10/16/16 00:01 34.4 124 28 136/81 (99) 94 Mechanical Ventilator 100 127/66 (86) 10/16/16 00:01 34.4 124 28 127/66 (76) 94 108/59 10/15/16 23:54 34.4 127 28 128/83 (93) 95 126/76 (82) 10/15/16 23:48 127 28 (103) 97 141/83 10/15/16 23:33 128 28 (101) 92 135/84 10/15/16 23:18 128 28 (95) 96 128/78 10/15/16 23:03 128 28 (156) 95 214/91 10/15/16 23:02 127 28 (97) 96 130/80 10/15/16 23:01 34.1 127 28 134/87 (97) 95 131/80 10/15/16 23:00 34.1 127 28 130/81 (97) 95 Mechanical Ventilator 100 134/87 (103) 10/15/16 22:56 100 10/15/16 22:47 127 28 (95) 92 127/79 10/15/16 22:35 118 28 103/69 (74) 98 90/57 10/15/16 22:32 115 28 (59) 95 81/46 10/15/16 22:17 126 28 (88) 95 117/74 10/15/16 22:02 127 28 (107) 93 145/90 10/15/16 22:01 33.8 128 28 152/81 (109) 94 147/91 10/15/16 22:00 33.8 127 28 145/89 (107) 93 Mechanical Ventilator 100 152/81 (104) 10/15/16 21:48 127 28 (107) 96 141/91 10/15/16 21:33 127 28 (105) 96 139/90 10/15/16 21:18 126 28 (97) 96 129/82 10/15/16 21:03 126 28 (96) 96 127/82 10/15/16 21:02 126 28 (94) 96 125/79 10/15/16 21:01 34.0 127 28 132/85 (97) 97 130/83 (95) 10/15/16 21:00 34.0 126 28 128/82 (97) 96 Mechanical Ventilator 100 132/85 (101) 10/15/16 20:47 127 28 (85) 94 114/72 10/15/16 20:32 130 28 (99) 94 134/84 10/15/16 20:31 129 28 (97) 95 132/82 10/15/16 20:16 130 28 (92) 95 124/77 10/15/16 20:01 34.4 132 28 120/74 (86) 96 114/73 (86) 10/15/16 20:00 100 10/15/16 20:00 34.4 131 28 116/72 (87) 95 Mechanical Ventilator 100 120/74 (89) 10/15/16 20:00 Mechanical Ventilator 100 10/15/16 19:46 134 28 (100) 95 139/83 10/15/16 19:45 134 28 (97) 94 136/81 10/15/16 19:33 136 28 150/87 (109) 92 155/89 10/15/16 19:30 133 28 (83) 96 121/67 10/15/16 19:19 100 10/15/16 19:15 136 28 (104) 95 152/86 10/15/16 19:01 138 28 136/90 (99) 94 145/81 10/15/16 19:00 35.0 138 28 136/90 (105) 95 Mechanical Ventilator 100 10/15/16 19:00 137 28 (98) 95 145/81 10/15/16 18:45 139 28 (95) 97 138/79 10/15/16 18:00 100 10/15/16 18:00 34.8 135 28 92/61 (71) 93 Mechanical Ventilator 100 10/15/16 17:00 34.4 130 28 123/67 (85) 93 Mechanical Ventilator 100 10/15/16 16:00 100 10/15/16 16:00 34.0 126 28 123/66 (85) 94 Mechanical Ventilator 100 10/15/16 16:00 Mechanical Ventilator 100 10/15/16 15:00 33.8 127 24 102/51 (68) 91 Mechanical Ventilator 80 10/15/16 14:24 80 10/15/16 14:00 33.4 127 24 109/61 (77) 96 Mechanical Ventilator 100 10/15/16 13:00 33.0 126 24 90/43 (59) 96 Mechanical Ventilator 100 10/15/16 12:00 100 10/15/16 12:00 Mechanical Ventilator 100 10/15/16 12:00 32.5 124 24 96/51 (66) 99 Mechanical Ventilator 100 10/15/16 11:21 80 10/15/16 11:00 32.3 122 24 101/47 (65) 95 Mechanical Ventilator 100 10/15/16 10:00 32.1 120 24 99/51 (67) 97 Mechanical Ventilator 100 10/15/16 09:00 32.0 110 24 99/46 (63) 92 Mechanical Ventilator 100 10/15/16 08:05 31.9 100 24 87/45 (59) 91 Mechanical Ventilator 100 10/15/16 08:00 91 Mechanical Ventilator 100 10/15/16 08:00 100 10/15/16 07:44 100 Resident Tracking Resident Involvement: Resident Care Provided Care Provided: Adult Hospital Medicine
[2016-10-16 07:58] LABS: ISTAT ARTERIAL BLOOD GAS HCO3 19 meq/L (19-24); ISTAT ARTERIAL BLOOD GAS PCO2 44 mmHg (35-46); ISTAT ARTERIAL BLOOD GAS PO2 49 mmHg (80-95); ISTAT ARTERIAL BLOOD GAS pH 7.23 (7.35-7.45); ISTAT CARBON DIOXIDE 20 mEq/l (24-31); ISTAT DELIVERY SYSTEM Ventilator; ISTAT FIO2 100 %; ISTAT PEEP 12; ISTAT RATE 28; ISTAT SITE Art Line; VE 17.6; Vt 700
[2016-10-16 08:46] LABS: INR 1.6 (0.9-1.1); PARTIAL THROMBOPLASTIN RATIO 1.3; PROTHROMBIN TIME (PATIENT) 17.3 SECONDS (9.0-12.0)
[2016-10-16 09:03] LABS: BUN/CREATININE RATIO 7.4 (10-20); CALCIUM 7.6 mg/dl (8.5-10.1); CREATININE 3.2 mg/dl (0.60-1.40); MAGNESIUM 1.4 mg/dl (1.8-2.4); POTASSIUM 3.6 mmol/L (3.5-5.1)
--- NOTE | 2016-10-16 09:18 | Critical Care Progress Note ---
Critical Care Progress Note Date of Service Oct 16, 2016. ICU Day ICU Day Number: [address] Cummins Subjective He remains on total support. No evidence of any brain activity clinically. Pupils remain fixed and dilated. No response to pain or suctioning. Does not trigger the vent. I spoke with his Mom and Dad today. Agree to not perform CPR should arrest occur. Ongoing discussion after follow-up EEG and neurology input. Current SOFA Score SOFA Score Response (Comments) Value PaO2/FiO2 (mmHg) < 100 4 SaO2 / FIO2 < 67 4 Platelets (x10) < 150 1 Bilirubin (mg/dL) 1.2 - 1.9 1 Sarah Coma Score < 6 4 Level of Hypotension MAP less than 70 1 Creatinine (mg/dL) 2.0 - 3.4 2 Total 17 Assessment & Plan Tragic Event--Respiratory and cardiac arrest--prolonged lack of brain perfusion..now with neurological devastation. Will follow-up with neurology/ EEG. Supportive measures continue but he is difficult to ventilate and oxygenate. Renal performance difficult to maintain. His situation is grave. Family is aware of this and discussion is ongoing. Will change to no CPR status for now. Continue general ICU measures to attempt preservation of body function. Consults & Procedures Consultants: Neuro Procedures: Central and A-lines, EEG Data Medications: Current Inpatient Medications Medications (Trade) Dose Ordered Sig/Jose Route Start Time Stop Time Status Last Admin Dose Admin Piperacillin Sod/ Tazobactam Sod (Consult) 1 ea UD PRN N/A 10/15/16 07:00 11/14/16 06:59 Dopamine HCl/ Dextrose 250 ml @ 0 mls/hr Q0M PRN IV 10/15/16 08:45 11/14/16 08:44 10/15/16 15:45 36.6 MLS/HR Norepinephrine Bitartrate 16 mg/ Dextrose 516 ml @ 0 mls/hr Q0M PRN IV 10/15/16 10:15 11/14/16 10:14 10/16/16 06:24 208 MLS/HR Piperacillin Sod/ Tazobactam Sod 4.5 gm/Dextrose 120 ml @ 30 mls/hr Q8@0600,1400,2200 IV 10/15/16 22:00 10/22/16 21:59 10/16/16 06:02 30 MLS/HR Miscellaneous Information (Consult Glycemic Management Pharmacy) 1 ea UD N/A 10/15/16 17:06 11/14/16 17:05 Hydrocortisone Sodium Succinate 100 mg/Syringe 2 ml @ 4 mls/min Q6 IV 10/15/16 18:00 11/14/16 17:59 10/16/16 06:02 4 MLS/MIN Insulin Aspart (novoLOG ASPART) SLIDING SCALE [facility] 10/15/16 17:15 11/14/16 17:14 Glucose (Glucose 40% Gel) UD PRN PO 10/15/16 17:15 11/14/16 17:14 Glucose (Glucose Chew Tab) 1 tabs UD PRN PO 10/15/16 17:15 11/14/16 17:14 Dextrose (Dextrose 50% 50ML Syringe) 50 ml UD PRN IV 10/15/16 17:15 11/14/16 17:14 Glucagon (Glucagon Inj) 1 mg UD PRN SQ 10/15/16 17:15 11/14/16 17:14 Insulin Human Regular 250 units/ Sodium Chloride 252.5 ml @ 0 mls/hr DAILY@1130 IV 10/15/16 17:14 11/14/16 17:13 10/15/16 17:40 3.3 MLS/HR Heparin Sodium (Porcine) (Heparin 10 Unit/ ml 5 ml Flush) 5 ml PRN PRN FLUSH 10/15/16 23:45 11/14/16 23:44 Vital Signs: Date Time Temp Pulse Resp B/P (MAP) Pulse Ox O2 Delivery O2 Flow Rate FiO2 10/16/16 08:15 100 10/16/16 08:00 36.6 131 28 109/61 (77) 94 Mechanical Ventilator 100 104/62 (76) 10/16/16 08:00 100 10/16/16 08:00 95 Mechanical Ventilator 100 10/16/16 07:00 36.5 133 28 120/66 (84) 96 Mechanical Ventilator 100 119/74 (89) 10/16/16 06:56 36.5 132 28 119/74 (83) 96 120/66 (85) 10/16/16 06:46 36.4 133 28 (86) 96 119/68 10/16/16 06:31 36.4 132 28 (89) 95 124/70 7/15/17 06:16 36.3 132 28 (85) 96 120/66 10/16/16 06:01 36.3 134 28 118/69 (87) 96 120/68 (84) 10/16/16 06:00 36.2 131 28 120/68 (85) 96 Mechanical Ventilator 118/69 (85) 10/16/16 05:47 36.2 131 28 (79) 94 111/61 10/16/16 05:40 100 10/16/16 05:32 36.1 130 28 (80) 95 111/62 10/16/16 05:17 36.0 129 28 (71) 94 99/56 10/16/16 05:01 35.9 132 28 128/77 (87) 94 124/67 (87) 10/16/16 05:00 35.9 132 28 124/67 (86) 94 Mechanical Ventilator 100 128/77 (94) 10/16/16 04:47 35.9 131 28 (86) 94 121/66 10/16/16 04:32 35.8 130 28 (86) 94 120/67 10/16/16 04:17 35.7 130 28 (85) 94 121/66 10/16/16 04:01 35.6 129 28 123/73 (97) 94 116/64 (83) 10/16/16 04:00 35.6 128 28 116/64 (81) 94 Mechanical Ventilator 123/73 (90) 10/16/16 04:00 Mechanical Ventilator 100 10/16/16 04:00 100 10/16/16 03:47 35.6 127 28 (84) 95 118/66 10/16/16 03:32 35.5 127 28 (82) 95 114/64 10/16/16 03:17 35.4 127 28 (81) 94 112/63 10/16/16 03:01 35.3 126 28 116/71 (81) 95 112/63 (81) 10/16/16 03:00 35.3 127 28 111/63 (79) 94 Mechanical Ventilator 100 116/71 (86) 10/16/16 02:46 35.2 127 28 (80) 94 110/63 10/16/16 02:31 35.2 127 28 (78) 95 107/61 10/16/16 02:16 35.1 126 28 (77) 95 106/62 10/16/16 02:07 100 10/16/16 02:01 34.9 126 28 114/67 (85) 95 109/64 (80) 10/16/16 02:00 34.9 127 28 109/64 (79) 95 Mechanical Ventilator 114/67 (83) 10/16/16 01:49 34.9 126 28 (74) 96 101/59 10/16/16 01:34 34.8 126 28 (81) 96 112/65 10/16/16 01:19 34.7 126 28 (80) 96 110/63 10/16/16 01:04 34.6 126 28 (88) 95 120/70 10/16/16 01:04 34.6 126 28 (88) 95 120/70 10/16/16 01:01 34.6 126 28 116/71 (82) 96 110/65 10/16/16 01:00 34.6 124 28 116/67 (83) 96 Mechanical Ventilator 100 116/71 (86) 10/16/16 00:49 34.5 129 28 (106) 97 146/87 10/16/16 00:34 34.5 128 28 (104) 96 144/85 10/16/16 00:19 34.4 127 28 (110) 96 112/108 10/16/16 00:04 34.4 126 28 (239) 94 240/239 10/16/16 00:03 34.4 125 28 (87) 94 120/70 10/16/16 00:01 Mechanical Ventilator 100 10/16/16 00:01 100 10/16/16 00:01 34.4 124 28 136/81 (99) 94 Mechanical Ventilator 100 127/66 (86) 10/16/16 00:01 34.4 124 28 127/66 (76) 94 108/59 10/15/16 23:54 34.4 127 28 128/83 (93) 95 126/76 (82) 10/15/16 23:48 127 28 (103) 97 141/83 10/15/16 23:33 128 28 (101) 92 135/84 10/15/16 23:18 128 28 (95) 96 128/78 10/15/16 23:03 128 28 (156) 95 214/91 10/15/16 23:02 127 28 (97) 96 130/80 10/15/16 23:01 34.1 127 28 134/87 (97) 95 131/80 10/15/16 23:00 34.1 127 28 130/81 (97) 95 Mechanical Ventilator 100 134/87 (103) 10/15/16 22:56 100 10/15/16 22:47 127 28 (95) 92 127/79 10/15/16 22:35 118 28 103/69 (74) 98 90/57 10/15/16 22:32 115 28 (59) 95 81/46 10/15/16 22:17 126 28 (88) 95 117/74 10/15/16 22:02 127 28 (107) 93 145/90 10/15/16 22:01 33.8 128 28 152/81 (109) 94 147/91 10/15/16 22:00 33.8 127 28 145/89 (107) 93 Mechanical Ventilator 100 152/81 (104) 10/15/16 21:48 127 28 (107) 96 141/91 10/15/16 21:33 127 28 (105) 96 139/90 10/15/16 21:18 126 28 (97) 96 129/82 10/15/16 21:03 126 28 (96) 96 127/82 10/15/16 21:02 126 28 (94) 96 125/79 10/15/16 21:01 34.0 127 28 132/85 (97) 97 130/83 (95) 10/15/16 21:00 34.0 126 28 128/82 (97) 96 Mechanical Ventilator 100 132/85 (101) 10/15/16 20:47 127 28 (85) 94 114/72 10/15/16 20:32 130 28 (99) 94 134/84 10/15/16 20:31 129 28 (97) 95 132/82 10/15/16 20:16 130 28 (92) 95 124/77 10/15/16 20:01 34.4 132 28 120/74 (86) 96 114/73 (86) 10/15/16 20:00 100 10/15/16 20:00 34.4 131 28 116/72 (87) 95 Mechanical Ventilator 100 120/74 (89) 10/15/16 20:00 Mechanical Ventilator 100 10/15/16 19:46 134 28 (100) 95 139/83 10/15/16 19:45 134 28 (97) 94 136/81 10/15/16 19:33 136 28 150/87 (109) 92 155/89 10/15/16 19:30 133 28 (83) 96 121/67 10/15/16 19:19 100 10/15/16 19:15 136 28 (104) 95 152/86 10/15/16 19:01 138 28 136/90 (99) 94 145/81 10/15/16 19:00 35.0 138 28 136/90 (105) 95 Mechanical Ventilator 100 10/15/16 19:00 137 28 (98) 95 145/81 10/15/16 18:45 139 28 (95) 97 138/79 10/15/16 18:00 100 10/15/16 18:00 34.8 135 28 92/61 (71) 93 Mechanical Ventilator 100 10/15/16 17:00 34.4 130 28 123/67 (85) 93 Mechanical Ventilator 100 10/15/16 16:00 100 10/15/16 16:00 34.0 126 28 123/66 (85) 94 Mechanical Ventilator 100 10/15/16 16:00 Mechanical Ventilator 100 10/15/16 15:00 33.8 127 24 102/51 (68) 91 Mechanical Ventilator 80 10/15/16 14:24 80 10/15/16 14:00 33.4 127 24 109/61 (77) 96 Mechanical Ventilator 100 10/15/16 13:00 33.0 126 24 90/43 (59) 96 Mechanical Ventilator 100 10/15/16 12:00 100 10/15/16 12:00 Mechanical Ventilator 100 10/15/16 12:00 32.5 124 24 96/51 (66) 99 Mechanical Ventilator 100 10/15/16 11:21 80 10/15/16 11:00 32.3 122 24 101/47 (65) 95 Mechanical Ventilator 100 10/15/16 10:00 32.1 120 24 99/51 (67) 97 Mechanical Ventilator 100 Laboratory Results: Last 24 Hours Test 10/15/16 09:29 10/15/16 10:13 10/15/16 11:56 10/15/16 14:41 Troponin I 1.250 ng/ml Blood Gas Sample Site L Radial R Radial Bedside Blood Gas pH (LAB) 7.20 7.08 Bedside Blood Gas pCO2 (LAB) 64 mmHg 61 mmHg Bedside Blood Gas pO2 (LAB) < 32 mmHg < 32 mmHg Bedside Blood Gas HCO3 (LAB) 25 meq/L 19 meq/L Bedside Blood Gas Total CO2 27 mEq/l 21 mEq/l Bedside Blood Gas Base Excess (LAB) -3.0 meq/L -11.0 meq/L Bedside Blood Gas O2 Saturation 38.0 % 20.0 % [place] Test Pass Pass Oxygen Delivery Device Ventilator Ventilator Bedside Oxygen Rate (breaths/min) 24 24 Blood Gas Minute Ventilation 12.2 13.7 Bedside FiO2 80 % 80 % Blood Gas Tidal Volume 600 600 Blood Gas PEEP 12 12 Prothrombin Time 17.6 SECONDS Prothromb Time International Ratio 1.6 Activated Partial Thromboplast Time 33.7 SECONDS Partial Thromboplastin Ratio 1.3 Sodium Level 144 mmol/L Potassium Level 2.8 mmol/L Chloride Level 106 mmol/L Carbon Dioxide Level 26 mmol/L Anion Gap 12.0 mmol/L Blood Urea Nitrogen 25 mg/dl Creatinine 2.50 mg/dl Est Creatinine Clear Calc Drug Dose 50.9 ml/min Estimated GFR () 40.7 Estimated GFR (Non- 35.1 BUN/Creatinine Ratio 9.8 Random Glucose 342 mg/dl Calcium Level 6.8 mg/dl Ionized Calcium 1.01 mmol/l Magnesium Level 1.5 mg/dl Beta-Hydroxybutyric Acid 1.08 mg/dL Test 10/15/16 16:42 10/15/16 16:50 10/15/16 17:06 10/15/16 19:01 Prothrombin Time 17.4 SECONDS Prothromb Time International Ratio 1.6 Activated Partial Thromboplast Time 37.1 SECONDS Partial Thromboplastin Ratio 1.4 Sodium Level 141 mmol/L Potassium Level 2.8 mmol/L Chloride Level 106 mmol/L Carbon Dioxide Level 23 mmol/L Anion Gap 12.0 mmol/L Blood Urea Nitrogen 24 mg/dl Creatinine 2.80 mg/dl Est Creatinine Clear Calc Drug Dose 45.4 ml/min Estimated GFR () 35.5 Estimated GFR (Non- 30.6 BUN/Creatinine Ratio 8.6 Random Glucose 407 mg/dl Calcium Level 6.8 mg/dl Ionized Calcium 1.11 mmol/l Magnesium Level 1.5 mg/dl Troponin I 1.560 ng/ml Beta-Hydroxybutyric Acid 1.01 mg/dL Bedside Glucose (other) 411 mg/dl 375 mg/dl Blood Gas Sample Site Art Line Bedside Blood Gas pH (LAB) 7.12 Bedside Blood Gas pCO2 (LAB) 55 mmHg Bedside Blood Gas pO2 (LAB) 37 mmHg Bedside Blood Gas HCO3 (LAB) 18 meq/L Bedside Blood Gas Total CO2 20 mEq/l Bedside Blood Gas Base Excess (LAB) -11.0 meq/L Bedside Blood Gas O2 Saturation 53.0 % [place] Test NA Oxygen Delivery Device Ventilator Bedside Oxygen Rate (breaths/min) 28 Bedside FiO2 100 % Blood Gas Tidal Volume 650 Blood Gas PEEP 12 Test 10/15/16 19:17 10/15/16 19:58 10/15/16 20:06 10/15/16 22:28 Blood Gas Sample Site Art Line Bedside Blood Gas pH (LAB) 7.21 Bedside Blood Gas pCO2 (LAB) 44 mmHg Bedside Blood Gas pO2 (LAB) 35 mmHg Bedside Blood Gas HCO3 (LAB) 18 meq/L Bedside Blood Gas Total CO2 19 mEq/l Bedside Blood Gas Base Excess (LAB) -10.0 meq/L Bedside Blood Gas O2 Saturation 64.0 % [place] Test NA Oxygen Delivery Device Ventilator Bedside Oxygen Rate (breaths/min) 28 Blood Gas Minute Ventilation 18.4 Bedside FiO2 100 % Blood Gas Tidal Volume 700 Blood Gas PEEP 12 Prothrombin Time 16.1 SECONDS Prothromb Time International Ratio 1.5 Activated Partial Thromboplast Time 35.7 SECONDS Partial Thromboplastin Ratio 1.4 Sodium Level 138 mmol/L Potassium Level 3.1 mmol/L Chloride Level 104 mmol/L Carbon Dioxide Level 23 mmol/L Anion Gap 11.0 mmol/L Blood Urea Nitrogen 23 mg/dl Creatinine 2.80 mg/dl Est Creatinine Clear Calc Drug Dose 45.4 ml/min Estimated GFR () 35.5 Estimated GFR (Non- 30.6 BUN/Creatinine Ratio 8.4 Random Glucose 360 mg/dl Calcium Level 7.0 mg/dl Ionized Calcium 1.12 mmol/l Magnesium Level 1.6 mg/dl Beta-Hydroxybutyric Acid 0.92 mg/dL Bedside Glucose (other) 365 mg/dl 324 mg/dl Test 10/15/16 23:10 10/16/16 00:11 10/16/16 00:21 10/16/16 01:06 Bedside Glucose (other) 314 mg/dl 320 mg/dl 306 mg/dl Prothrombin Time 16.1 SECONDS Prothromb Time International Ratio 1.5 Activated Partial Thromboplast Time 35.5 SECONDS Partial Thromboplastin Ratio 1.4 Sodium Level 137 mmol/L Potassium Level 2.9 mmol/L Chloride Level 102 mmol/L Carbon Dioxide Level 20 mmol/L Anion Gap 15.0 mmol/L Blood Urea Nitrogen 24 mg/dl Creatinine 2.90 mg/dl Est Creatinine Clear Calc Drug Dose 43.9 ml/min Estimated GFR () 34.0 Estimated GFR (Non- 29.4 BUN/Creatinine Ratio 8.3 Random Glucose 305 mg/dl Calcium Level 7.1 mg/dl Ionized Calcium 1.14 mmol/l Magnesium Level 1.7 mg/dl Beta-Hydroxybutyric Acid 0.86 mg/dL Test 10/16/16 01:59 10/16/16 03:02 10/16/16 03:55 10/16/16 03:59 Bedside Glucose (other) 280 mg/dl 277 mg/dl 263 mg/dl White Blood Count 12.81 K/uL Red Blood Count 5.04 M/uL Hemoglobin 15.7 g/dL Hematocrit 44.0 % Mean Corpuscular Volume 87.3 fL Mean Corpuscular Hemoglobin 31.2 pg Mean Corpuscular Hemoglobin Concent 35.7 g/dl Platelet Count 156 K/uL Mean Platelet Volume 11.2 fL Neutrophils (%) (Auto) 89.8 % Lymphocytes (%) (Auto) 7.5 % Monocytes (%) (Auto) 2.4 % Eosinophils (%) (Auto) 0.0 % Basophils (%) (Auto) 0.1 % Neutrophils # (Auto) 11.50 K/uL Lymphocytes # (Auto) 0.96 K/uL Monocytes # (Auto) 0.31 K/uL Eosinophils # (Auto) 0.00 K/uL Basophils # (Auto) 0.01 K/uL RDW Standard Deviation 41.4 fL RDW Coefficient of Variation 13.0 % Immature Granulocyte % (Auto) 0.2 % Immature Granulocyte # (Auto) 0.03 K/uL Prothrombin Time 15.3 SECONDS Prothromb Time International Ratio 1.4 Activated Partial Thromboplast Time 34.3 SECONDS Partial Thromboplastin Ratio 1.3 Sodium Level 136 mmol/L Potassium Level 3.3 mmol/L Chloride Level 101 mmol/L Carbon Dioxide Level 21 mmol/L Anion Gap 14.0 mmol/L Blood Urea Nitrogen 24 mg/dl Creatinine 3.00 mg/dl Est Creatinine Clear Calc Drug Dose 42.4 ml/min Estimated GFR () 32.7 Estimated GFR (Non- 28.2 BUN/Creatinine Ratio 8.0 Random Glucose 254 mg/dl Calcium Level 7.1 mg/dl Ionized Calcium 1.13 mmol/l Phosphorus Level 1.4 mg/dl Magnesium Level 2.0 mg/dl Total Bilirubin 0.4 mg/dl Direct Bilirubin 0.1 mg/dl Aspartate Amino Transf (AST/SGOT) 171 U/L Alanine Aminotransferase (ALT/SGPT) 73 U/L Alkaline Phosphatase 58 U/L Total Protein 4.2 gm/dl Albumin 2.3 gm/dl Test 10/16/16 06:14 10/16/16 07:06 10/16/16 07:47 10/16/16 07:57 Bedside Glucose (other) 203 mg/dl 193 mg/dl Blood Gas Sample Site Art Line Bedside Blood Gas pH (LAB) 7.23 Bedside Blood Gas pCO2 (LAB) 44 mmHg Bedside Blood Gas pO2 (LAB) 49 mmHg Bedside Blood Gas HCO3 (LAB) 19 meq/L Bedside Blood Gas Total CO2 20 mEq/l Bedside Blood Gas Base Excess (LAB) -9.0 meq/L Bedside Blood Gas O2 Saturation 77.0 % [place] Test NA Oxygen Delivery Device Ventilator Bedside Oxygen Rate (breaths/min) 28 Blood Gas Minute Ventilation 17.6 Bedside FiO2 100 % Blood Gas Tidal Volume 700 Blood Gas PEEP 12 Prothrombin Time 17.3 SECONDS Prothromb Time International Ratio 1.6 Activated Partial Thromboplast Time 34.2 SECONDS Partial Thromboplastin Ratio 1.3 Sodium Level 134 mmol/L Potassium Level 3.6 mmol/L Chloride Level 100 mmol/L Carbon Dioxide Level 23 mmol/L Anion Gap 11.0 mmol/L Blood Urea Nitrogen 24 mg/dl Creatinine 3.20 mg/dl Est Creatinine Clear Calc Drug Dose 39.8 ml/min Estimated GFR () 30.2 Estimated GFR (Non- 26.1 BUN/Creatinine Ratio 7.4 Random Glucose 168 mg/dl Calcium Level 7.6 mg/dl Ionized Calcium 1.10 mmol/l Magnesium Level 1.4 mg/dl
--- NOTE | 2016-10-16 10:03 | EEG Procedure Note ---
EEG Procedure Note Date of Service Oct 16, 2016. Start / End Times Start Time: 921 End Time: [address] uCmmins History 21 year old post arrest with unresponsive state. Question brain Home Medication List Scheduled Albuterol (Ventolin Hfa), 2 PUFFS INH QID Clindamycin Phosphate-Benzoyl (Acanya), 1 APPLN TOP BID Montelukast Sodium (Montelukast Sodium), 10 MG PO DAILY Phenytoin Sodium (Dilantin), 100 MG PO TID Sertraline (Zoloft), 50 MG PO DAILY Scheduled PRN Loratadine (Claritin), 10 MG PO DAILY PRN for ALLERGIC REACTION Lorazepam (Ativan), 0.5 MG PO DAILY PRN for Anxiety Inpatient Medication List Current Inpatient Medications Medications (Trade) Dose Ordered Sig/Jose Route Start Time Stop Time Status Last Admin Dose Admin Piperacillin Sod/ Tazobactam Sod (Consult) 1 ea UD PRN N/A 10/15/16 07:00 11/14/16 06:59 Dopamine HCl/ Dextrose 250 ml @ 0 mls/hr Q0M PRN IV 10/15/16 08:45 11/14/16 08:44 10/15/16 15:45 36.6 MLS/HR Norepinephrine Bitartrate 16 mg/ Dextrose 516 ml @ 0 mls/hr Q0M PRN IV 10/15/16 10:15 11/14/16 10:14 10/16/16 06:24 208 MLS/HR Piperacillin Sod/ Tazobactam Sod 4.5 gm/Dextrose 120 ml @ 30 mls/hr Q8@0600,1400,2200 IV 10/15/16 22:00 10/22/16 21:59 10/16/16 06:02 30 MLS/HR Miscellaneous Information (Consult Glycemic Management Pharmacy) 1 ea UD N/A 10/15/16 17:06 11/14/16 17:05 Hydrocortisone Sodium Succinate 100 mg/Syringe 2 ml @ 4 mls/min Q6 IV 10/15/16 18:00 11/14/16 17:59 10/16/16 06:02 4 MLS/MIN Insulin Aspart (novoLOG ASPART) SLIDING SCALE [facility] 10/15/16 17:15 11/14/16 17:14 Glucose (Glucose 40% Gel) UD PRN PO 10/15/16 17:15 11/14/16 17:14 Glucose (Glucose Chew Tab) 1 tabs UD PRN PO 10/15/16 17:15 11/14/16 17:14 Dextrose (Dextrose 50% 50ML Syringe) 50 ml UD PRN IV 10/15/16 17:15 8 17:14 Glucagon (Glucagon Inj) 1 mg UD PRN SQ 10/15/16 17:15 11/14/16 17:14 Insulin Human Regular 250 units/ Sodium Chloride 252.5 ml @ 0 mls/hr DAILY@1130 IV 10/15/16 17:14 11/14/16 17:13 10/15/16 17:40 3.3 MLS/HR Heparin Sodium (Porcine) (Heparin 10 Unit/ ml 5 ml Flush) 5 ml PRN PRN FLUSH 10/15/16 23:45 11/14/16 23:44 Description This is a 21 electrode EEG with a single channel dedicated to limited EKG. The electrodes were placed in accordance with the International 10-20 system. Interpretation At 7uV the was no significant background activity noted (flat). There was occasional artifact from the ventilator and other machinery, but this did not hinder interpretation overall. At 3uV, there was intermittent frontotemporal activity noted in a 7-12uV amplitude range. Most of the leads were less than 3uV the majority of the time, Rarely there were some very low amplitude (15uV) 1-2 second generalized bursts. There was no clinical activity noted with these bursts and stimulating each limb with deep pain did not produce any change in the background Overall this study is consistent with a suppression grade II (severe generalized slowing with extremely low amplitudes). It, however, does not qualify as "flat". There were no focal abnormalities or potentially epileptogenic discharges noted. Clinical Correlation This study is consistent with a severe generalized encephalopathy and carries a very poor/grave prognosis
[2016-10-16 10:53] LABS: ISTAT ARTERIAL BLOOD GAS HCO3 19 meq/L (19-24); ISTAT ARTERIAL BLOOD GAS PCO2 36 mmHg (35-46); ISTAT ARTERIAL BLOOD GAS PO2 54 mmHg (80-95); ISTAT ARTERIAL BLOOD GAS pH 7.34 (7.35-7.45); ISTAT CARBON DIOXIDE 20 mEq/l (24-31); ISTAT DELIVERY SYSTEM Ventilator; ISTAT FIO2 100 %; ISTAT PEEP 12; ISTAT RATE 28; ISTAT SITE Art Line; VE 17.5; Vt 700
--- NOTE | 2016-10-16 11:02 | Neurology Progress Notes ---
Neurology Progress Note Date of Service Oct 16, 2016. Subjective Nursing reports no seizure activity over the last 24 hours. There is been no report of any spontaneous movement or effort against or in addition to the ventilator. EEG this morning showed some very minimal activity in the frontotemporal head regions, between 7 and 12 V with a rare 1 second burst of activity up to 15 V without clinical accompaniment. There were no focal abnormalities or potentially epileptogenic discharges. The rest of the EEG was flat. Please see separate report Objective Date Time Temp Pulse Resp B/P (MAP) Pulse Ox O2 Delivery O2 Flow Rate FiO2 10/16/16 09:00 36.8 132 28 114/66 (82) 93 Mechanical Ventilator 100 119/76 (90) 10/16/16 08:15 100 10/16/16 08:00 36.6 131 28 109/61 (77) 94 Mechanical Ventilator 100 104/62 (76) 10/16/16 08:00 100 10/16/16 08:00 95 Mechanical Ventilator 100 10/16/16 07:00 36.5 133 28 120/66 (84) 96 Mechanical Ventilator 100 119/74 (89) 10/16/16 06:56 36.5 132 28 119/74 (83) 96 120/66 (85) 10/16/16 06:46 36.4 133 28 (86) 96 119/68 10/16/16 06:31 36.4 132 28 (89) 95 124/70 10/16/16 06:16 36.3 132 28 (85) 96 120/66 10/16/16 06:01 36.3 134 28 118/69 (87) 96 120/68 (84) 10/16/16 06:00 36.2 131 28 120/68 (85) 96 Mechanical Ventilator 118/69 (85) 10/16/16 05:47 36.2 131 28 (79) 94 111/61 10/16/16 05:40 100 10/16/16 05:32 36.1 130 28 (80) 95 111/62 10/16/16 05:17 36.0 129 28 (71) 94 99/56 10/16/16 05:01 35.9 132 28 128/77 (87) 94 124/67 (87) 10/16/16 05:00 35.9 132 28 124/67 (86) 94 Mechanical Ventilator 100 128/77 (94) 10/16/16 04:47 35.9 131 28 (86) 94 121/66 10/16/16 04:32 35.8 130 28 (86) 94 120/67 10/16/16 04:17 35.7 130 28 (85) 94 121/66 10/16/16 04:01 35.6 129 28 123/73 (97) 94 116/64 (83) 10/16/16 04:00 35.6 128 28 116/64 (81) 94 Mechanical Ventilator 123/73 (90) 10/16/16 04:00 Mechanical Ventilator 100 10/16/16 04:00 100 10/16/16 03:47 35.6 127 28 (84) 95 118/66 10/16/16 03:32 35.5 127 28 (82) 95 114/64 10/16/16 03:17 35.4 127 28 (81) 94 112/63 10/16/16 03:01 35.3 126 28 116/71 (81) 95 112/63 (81) 10/16/16 03:00 35.3 127 28 111/63 (79) 94 Mechanical Ventilator 100 116/71 (86) 10/16/16 02:46 35.2 127 28 (80) 94 110/63 10/16/16 02:31 35.2 127 28 (78) 95 107/61 10/16/16 02:16 35.1 126 28 (77) 95 106/62 10/16/16 02:07 100 10/16/16 02:01 34.9 126 28 114/67 (85) 95 109/64 (80) 10/16/16 02:00 34.9 127 28 109/64 (79) 95 Mechanical Ventilator 114/67 (83) 10/16/16 01:49 34.9 126 28 (74) 96 101/59 10/16/16 01:34 34.8 126 28 (81) 96 112/65 10/16/16 01:19 34.7 126 28 (80) 96 110/63 10/16/16 01:04 34.6 126 28 (88) 95 120/70 10/16/16 01:04 34.6 126 28 (88) 95 120/70 10/16/16 01:01 34.6 126 28 116/71 (82) 96 110/65 10/16/16 01:00 34.6 124 28 116/67 (83) 96 Mechanical Ventilator 100 116/71 (86) 10/16/16 00:49 34.5 129 28 (106) 97 146/87 10/16/16 00:34 34.5 128 28 (104) 96 144/85 10/16/16 00:19 34.4 127 28 (110) 96 112/108 10/16/16 00:04 34.4 126 28 (239) 94 240/239 10/16/16 00:03 34.4 125 28 (87) 94 120/70 10/16/16 00:01 Mechanical Ventilator 100 10/16/16 00:01 100 10/16/16 00:01 34.4 124 28 136/81 (99) 94 Mechanical Ventilator 100 127/66 (86) 10/16/16 00:01 34.4 124 28 127/66 (76) 94 108/59 10/15/16 23:54 34.4 127 28 128/83 (93) 95 126/76 (82) 10/15/16 23:48 127 28 (103) 97 141/83 10/15/16 23:33 128 28 (101) 92 135/84 10/15/16 23:18 128 28 (95) 96 128/78 10/15/16 23:03 128 28 (156) 95 214/91 10/15/16 23:02 127 28 (97) 96 130/80 10/15/16 23:01 34.1 127 28 134/87 (97) 95 131/80 10/15/16 23:00 34.1 127 28 130/81 (97) 95 Mechanical Ventilator 100 134/87 (103) 10/15/16 22:56 100 10/15/16 22:47 127 28 (95) 92 127/79 10/15/16 22:35 118 28 103/69 (74) 98 90/57 10/15/16 22:32 115 28 (59) 95 81/46 10/15/16 22:17 126 28 (88) 95 117/74 10/15/16 22:02 127 28 (107) 93 145/90 10/15/16 22:01 33.8 128 28 152/81 (109) 94 147/91 10/15/16 22:00 33.8 127 28 145/89 (107) 93 Mechanical Ventilator 100 152/81 (104) 10/15/16 21:48 127 28 (107) 96 141/91 10/15/16 21:33 127 28 (105) 96 139/90 10/15/16 21:18 126 28 (97) 96 129/82 10/15/16 21:03 126 28 (96) 96 127/82 10/15/16 21:02 126 28 (94) 96 125/79 10/15/16 21:01 34.0 127 28 132/85 (97) 97 130/83 (95) 10/15/16 21:00 34.0 126 28 128/82 (97) 96 Mechanical Ventilator 100 132/85 (101) 10/15/16 20:47 127 28 (85) 94 114/72 10/15/16 20:32 130 28 (99) 94 134/84 10/15/16 20:31 129 28 (97) 95 132/82 10/15/16 20:16 130 28 (92) 95 124/77 10/15/16 20:01 34.4 132 28 120/74 (86) 96 114/73 (86) 10/15/16 20:00 100 10/15/16 20:00 34.4 131 28 116/72 (87) 95 Mechanical Ventilator 100 120/74 (89) 10/15/16 20:00 Mechanical Ventilator 100 10/15/16 19:46 134 28 (100) 95 139/83 10/15/16 19:45 134 28 (97) 94 136/81 10/15/16 19:33 136 28 150/87 (109) 92 155/89 10/15/16 19:30 133 28 (83) 96 121/67 10/15/16 19:19 100 10/15/16 19:15 136 28 (104) 95 152/86 10/15/16 19:01 138 28 136/90 (99) 94 145/81 10/15/16 19:00 35.0 138 28 136/90 (105) 95 Mechanical Ventilator 100 10/15/16 19:00 137 28 (98) 95 145/81 10/15/16 18:45 139 28 (95) 97 138/79 10/15/16 18:00 100 10/15/16 18:00 34.8 135 28 92/61 (71) 93 Mechanical Ventilator 100 10/15/16 17:00 34.4 130 28 123/67 (85) 93 Mechanical Ventilator 100 10/15/16 16:00 100 10/15/16 16:00 34.0 126 28 123/66 (85) 94 Mechanical Ventilator 100 10/15/16 16:00 Mechanical Ventilator 100 10/15/16 15:00 33.8 127 24 102/51 (68) 91 Mechanical Ventilator 80 10/15/16 14:24 80 10/15/16 14:00 33.4 127 24 109/61 (77) 96 Mechanical Ventilator 100 10/15/16 13:00 33.0 126 24 90/43 (59) 96 Mechanical Ventilator 100 10/15/16 12:00 100 10/15/16 12:00 Mechanical Ventilator 100 10/15/16 12:00 32.5 124 24 96/51 (66) 99 Mechanical Ventilator 100 10/15/16 11:21 80 10/15/16 11:00 32.3 122 24 101/47 (65) 95 Mechanical Ventilator 100 Last 24 Hours Test 10/15/16 11:56 10/15/16 14:41 10/15/16 16:42 10/15/16 16:50 Prothrombin Time 17.6 SECONDS 17.4 SECONDS Prothromb Time International Ratio 1.6 1.6 Activated Partial Thromboplast Time 33.7 SECONDS 37.1 SECONDS Partial Thromboplastin Ratio 1.3 1.4 Sodium Level 144 mmol/L 141 mmol/L Potassium Level 2.8 mmol/L 2.8 mmol/L Chloride Level 106 mmol/L 106 mmol/L Carbon Dioxide Level 26 mmol/L 23 mmol/L Anion Gap 12.0 mmol/L 12.0 mmol/L Blood Urea Nitrogen 25 mg/dl 24 mg/dl Creatinine 2.50 mg/dl 2.80 mg/dl Est Creatinine Clear Calc Drug Dose 50.9 ml/min 45.4 ml/min Estimated GFR () 40.7 35.5 Estimated GFR (Non- 35.1 30.6 BUN/Creatinine Ratio 9.8 8.6 Random Glucose 342 mg/dl 407 mg/dl Calcium Level 6.8 mg/dl 6.8 mg/dl Ionized Calcium 1.01 mmol/l 1.11 mmol/l Magnesium Level 1.5 mg/dl 1.5 mg/dl Beta-Hydroxybutyric Acid 1.08 mg/dL 1.01 mg/dL Blood Gas Sample Site R Radial Bedside Blood Gas pH (LAB) 7.08 Bedside Blood Gas pCO2 (LAB) 61 mmHg Bedside Blood Gas pO2 (LAB) < 32 mmHg Bedside Blood Gas HCO3 (LAB) 19 meq/L Bedside Blood Gas Total CO2 21 mEq/l Bedside Blood Gas Base Excess (LAB) -11.0 meq/L Bedside Blood Gas O2 Saturation 20.0 % [place] Test Pass Oxygen Delivery Device Ventilator Bedside Oxygen Rate (breaths/min) 24 Blood Gas Minute Ventilation 13.7 Bedside FiO2 80 % Blood Gas Tidal Volume 600 Blood Gas PEEP 12 Troponin I 1.560 ng/ml Bedside Glucose (other) 411 mg/dl Test 10/15/16 17:06 10/15/16 19:01 10/15/16 19:17 10/15/16 19:58 Blood Gas Sample Site Art Line Art Line Bedside Blood Gas pH (LAB) 7.12 7.21 Bedside Blood Gas pCO2 (LAB) 55 mmHg 44 mmHg Bedside Blood Gas pO2 (LAB) 37 mmHg 35 mmHg Bedside Blood Gas HCO3 (LAB) 18 meq/L 18 meq/L Bedside Blood Gas Total CO2 20 mEq/l 19 mEq/l Bedside Blood Gas Base Excess (LAB) -11.0 meq/L -10.0 meq/L Bedside Blood Gas O2 Saturation 53.0 % 64.0 % [place] Test NA NA Oxygen Delivery Device Ventilator Ventilator Bedside Oxygen Rate (breaths/min) 28 28 Bedside FiO2 100 % 100 % Blood Gas Tidal Volume 650 700 Blood Gas PEEP 12 12 Bedside Glucose (other) 375 mg/dl Blood Gas Minute Ventilation 18.4 Prothrombin Time 16.1 SECONDS Prothromb Time International Ratio 1.5 Activated Partial Thromboplast Time 35.7 SECONDS Partial Thromboplastin Ratio 1.4 Sodium Level 138 mmol/L Potassium Level 3.1 mmol/L Chloride Level 104 mmol/L Carbon Dioxide Level 23 mmol/L Anion Gap 11.0 mmol/L Blood Urea Nitrogen 23 mg/dl Creatinine 2.80 mg/dl Est Creatinine Clear Calc Drug Dose 45.4 ml/min Estimated GFR () 35.5 Estimated GFR (Non- 30.6 BUN/Creatinine Ratio 8.4 Random Glucose 360 mg/dl Calcium Level 7.0 mg/dl Ionized Calcium 1.12 mmol/l Magnesium Level 1.6 mg/dl Beta-Hydroxybutyric Acid 0.92 mg/dL Test 10/15/16 20:06 10/15/16 22:28 10/15/16 23:10 10/16/16 00:11 Bedside Glucose (other) 365 mg/dl 324 mg/dl 314 mg/dl 320 mg/dl Test 10/16/16 00:21 10/16/16 01:06 10/16/16 01:59 10/16/16 03:02 Prothrombin Time 16.1 SECONDS Prothromb Time International Ratio 1.5 Activated Partial Thromboplast Time 35.5 SECONDS Partial Thromboplastin Ratio 1.4 Sodium Level 137 mmol/L Potassium Level 2.9 mmol/L Chloride Level 102 mmol/L Carbon Dioxide Level 20 mmol/L Anion Gap 15.0 mmol/L Blood Urea Nitrogen 24 mg/dl Creatinine 2.90 mg/dl Est Creatinine Clear Calc Drug Dose 43.9 ml/min Estimated GFR () 34.0 Estimated GFR (Non- 29.4 BUN/Creatinine Ratio 8.3 Random Glucose 305 mg/dl Calcium Level 7.1 mg/dl Ionized Calcium 1.14 mmol/l Magnesium Level 1.7 mg/dl Beta-Hydroxybutyric Acid 0.86 mg/dL Bedside Glucose (other) 306 mg/dl 280 mg/dl 277 mg/dl Test 10/16/16 03:55 10/16/16 03:59 10/16/16 06:14 10/16/16 07:06 White Blood Count 12.81 K/uL Red Blood Count 5.04 M/uL Hemoglobin 15.7 g/dL Hematocrit 44.0 % Mean Corpuscular Volume 87.3 fL Mean Corpuscular Hemoglobin 31.2 pg Mean Corpuscular Hemoglobin Concent 35.7 g/dl Platelet Count 156 K/uL Mean Platelet Volume 11.2 fL Neutrophils (%) (Auto) 89.8 % Lymphocytes (%) (Auto) 7.5 % Monocytes (%) (Auto) 2.4 % Eosinophils (%) (Auto) 0.0 % Basophils (%) (Auto) 0.1 % Neutrophils # (Auto) 11.50 K/uL Lymphocytes # (Auto) 0.96 K/uL Monocytes # (Auto) 0.31 K/uL Eosinophils # (Auto) 0.00 K/uL Basophils # (Auto) 0.01 K/uL RDW Standard Deviation 41.4 fL RDW Coefficient of Variation 13.0 % Immature Granulocyte % (Auto) 0.2 % Immature Granulocyte # (Auto) 0.03 K/uL Prothrombin Time 15.3 SECONDS Prothromb Time International Ratio 1.4 Activated Partial Thromboplast Time 34.3 SECONDS Partial Thromboplastin Ratio 1.3 Sodium Level 136 mmol/L Potassium Level 3.3 mmol/L Chloride Level 101 mmol/L Carbon Dioxide Level 21 mmol/L Anion Gap 14.0 mmol/L Blood Urea Nitrogen 24 mg/dl Creatinine 3.00 mg/dl Est Creatinine Clear Calc Drug Dose 42.4 ml/min Estimated GFR () 32.7 Estimated GFR (Non- 28.2 BUN/Creatinine Ratio 8.0 Random Glucose 254 mg/dl Calcium Level 7.1 mg/dl Ionized Calcium 1.13 mmol/l Phosphorus Level 1.4 mg/dl Magnesium Level 2.0 mg/dl Total Bilirubin 0.4 mg/dl Direct Bilirubin 0.1 mg/dl Aspartate Amino Transf (AST/SGOT) 171 U/L Alanine Aminotransferase (ALT/SGPT) 73 U/L Alkaline Phosphatase 58 U/L Total Protein 4.2 gm/dl Albumin 2.3 gm/dl Bedside Glucose (other) 263 mg/dl 203 mg/dl 193 mg/dl Test 10/16/16 07:47 10/16/16 07:57 10/16/16 09:13 10/16/16 10:34 Blood Gas Sample Site Art Line Art Line Bedside Blood Gas pH (LAB) 7.23 7.34 Bedside Blood Gas pCO2 (LAB) 44 mmHg 36 mmHg Bedside Blood Gas pO2 (LAB) 49 mmHg 54 mmHg Bedside Blood Gas HCO3 (LAB) 19 meq/L 19 meq/L Bedside Blood Gas Total CO2 20 mEq/l 20 mEq/l Bedside Blood Gas Base Excess (LAB) -9.0 meq/L -7.0 meq/L Bedside Blood Gas O2 Saturation 77.0 % 86.0 % [place] Test NA NA Oxygen Delivery Device Ventilator Ventilator Bedside Oxygen Rate (breaths/min) 28 28 Blood Gas Minute Ventilation 17.6 17.5 Bedside FiO2 100 % 100 % Blood Gas Tidal Volume 700 700 Blood Gas PEEP 12 12 Prothrombin Time 17.3 SECONDS Prothromb Time International Ratio 1.6 Activated Partial Thromboplast Time 34.2 SECONDS Partial Thromboplastin Ratio 1.3 Sodium Level 134 mmol/L Potassium Level 3.6 mmol/L Chloride Level 100 mmol/L Carbon Dioxide Level 23 mmol/L Anion Gap 11.0 mmol/L Blood Urea Nitrogen 24 mg/dl Creatinine 3.20 mg/dl Est Creatinine Clear Calc Drug Dose 39.8 ml/min Estimated GFR () 30.2 Estimated GFR (Non- 26.1 BUN/Creatinine Ratio 7.4 Random Glucose 168 mg/dl Calcium Level 7.6 mg/dl Ionized Calcium 1.10 mmol/l Magnesium Level 1.4 mg/dl Bedside Glucose (other) 164 mg/dl Exam: Patient has no spontaneous respirations. With turning off the ventilator for 2 minutes his O2 saturation dropped to 93% from 96% and he had no respiratory effort at all. At 1007 hours at the beginning of the examination, core temperature was 37 1 and blood pressure was 113/64. He had no response to voice, clap, shout, or shake. Eyes open passively and pupils are 7 mm and nonreactive bilaterally. Eyes are front and fixed with no oculocephalics. There are no corneal reflexes bilaterally. There is no cough or gag with suction or stimulation at the back of the throat. Limbs have no tone. There is no spontaneous movement. There is no movement to deep pain in all 4 limbs. Toes are neutral to plantar stimulation bilaterally. Reflexes are absent in all 4 limbs. Current Inpatient Medications Medications (Trade) Dose Ordered Sig/Jose Route Start Time Stop Time Status Last Admin Dose Admin Piperacillin Sod/ Tazobactam Sod (Consult) 1 jolly WRIGHT PRN N/A 10/15/16 07:00 11/14/16 06:59 Dopamine HCl/ Dextrose 250 ml @ 0 mls/hr Q0M PRN IV 10/15/16 08:45 11/14/16 08:44 10/15/16 15:45 36.6 MLS/HR Norepinephrine Bitartrate 16 mg/ Dextrose 516 ml @ 0 mls/hr Q0M PRN IV 10/15/16 10:15 11/14/16 10:14 10/16/16 06:24 208 MLS/HR Piperacillin Sod/ Tazobactam Sod 4.5 gm/Dextrose 120 ml @ 30 mls/hr Q8@0600,1400,2200 IV 10/15/16 22:00 10/22/16 21:59 10/16/16 06:02 30 MLS/HR Miscellaneous Information (Consult Glycemic Management Pharmacy) 1 jolly WRIGHT N/A 10/15/16 17:06 11/14/16 17:05 Hydrocortisone Sodium Succinate 100 mg/Syringe 2 ml @ 4 mls/min Q6 IV 10/15/16 18:00 11/14/16 17:59 10/16/16 06:02 4 MLS/MIN Insulin Aspart (novoLOG ASPART) SLIDING SCALE PCHS SC 10/15/16 17:15 11/14/16 17:14 Glucose (Glucose 40% Gel) UD PRN PO 10/15/16 17:15 11/14/16 17:14 Glucose (Glucose Chew Tab) 1 tabs UD PRN PO 10/15/16 17:15 11/14/16 17:14 Dextrose (Dextrose 50% 50ML Syringe) 50 ml UD PRN IV 10/15/16 17:15 11/14/16 17:14 Glucagon (Glucagon Inj) 1 mg UD PRN SQ 10/15/16 17:15 11/14/16 17:14 Insulin Human Regular 250 units/ Sodium Chloride 252.5 ml @ 0 mls/hr DAILY@1130 IV 10/15/16 17:14 11/14/16 17:13 10/15/16 17:40 3.3 MLS/HR Heparin Sodium (Porcine) (Heparin 10 Unit/ ml 5 ml Flush) 5 ml PRN PRN FLUSH 10/15/16 23:45 11/14/16 23:44 Impression Post cardiac arrest (late hours of 10-14) secondary to presumed benzodiazepine drug overdose/ possible aspiration. Currently he has no signs of cerebral, brainstem, or spinal cord activity. This has been the case since admission in the lamination technician hours of 714 He is completely ventilator dependent and shows no respiratory drive off the ventilator (failed apnea test) Blood pressure and core temperature are adequate. EEG could not be considered technically "flat' because of some very small, intermittent activity, but was very close to being flat. Overall, there is a grave prognosis for this patient, who had no central nervous system activity now for almost 48 hours. Plan I have had a long discussion with Dr. Cummins and the family including the patient's parents, uncles, and siblings. I do not see any meaningful brain activity and see no reason to prolong mechanical support any longer. Please contact me if I can be of further assistance on this case. I have personally spent 60 minutes with this case including direct patient care and discussion with his physicians and his family at the bedside.
[2016-10-16] MEDS ORDERED: INSULIN REGULAR 250 UNITS in SODIUM CHLORIDE 0.9% 250ML 250 ML IV SCH (11:30)
--- NOTE | 2016-10-16 11:36 | Pharmacy Progress Note ---
Glycemic Control Intl Consult Date of Service Oct 16, 2016. Scope Glycemic Pharmacist consulted by Dr Cummins on 10/15 for glycemic control and to write orders per [facility] inpatient glycemic control protocol Objective Weight (Kilograms): 87.900 Accuchecks BSG (last 24hrs): Test 10/15/16 11:56 10/15/16 16:42 10/15/16 19:58 10/16/16 00:21 Random Glucose 342 mg/dl (70-99) 407 mg/dl (70-99) 360 mg/dl (70-99) 305 mg/dl (70-99) Test 10/16/16 03:55 10/16/16 07:57 Random Glucose 254 mg/dl (70-99) 168 mg/dl (70-99) Laboratory Data (last 24hrs) Test 10/15/16 11:56 10/15/16 16:42 10/15/16 19:58 10/16/16 00:21 Anion Gap 12.0 mmol/L 12.0 mmol/L 11.0 mmol/L 15.0 mmol/L BUN/Creatinine Ratio 9.8 8.6 8.4 8.3 Blood Urea Nitrogen 25 mg/dl 24 mg/dl 23 mg/dl 24 mg/dl Creatinine 2.50 mg/dl 2.80 mg/dl 2.80 mg/dl 2.90 mg/dl Potassium Level 2.8 mmol/L 2.8 mmol/L 3.1 mmol/L 2.9 mmol/L Sodium Level 144 mmol/L 141 mmol/L 138 mmol/L 137 mmol/L Test 10/16/16 03:55 10/16/16 07:57 Anion Gap 14.0 mmol/L 11.0 mmol/L BUN/Creatinine Ratio 8.0 7.4 Blood Urea Nitrogen 24 mg/dl 24 mg/dl Creatinine 3.00 mg/dl 3.20 mg/dl Potassium Level 3.3 mmol/L 3.6 mmol/L Sodium Level 136 mmol/L 134 mmol/L White Blood Count 12.81 K/uL Red Blood Count 5.04 M/uL Hemoglobin 15.7 g/dL Hematocrit 44.0 % Mean Corpuscular Volume 87.3 fL Mean Corpuscular Hemoglobin 31.2 pg Mean Corpuscular Hemoglobin Concent 35.7 g/dl Platelet Count 156 K/uL Mean Platelet Volume 11.2 fL Neutrophils (%) (Auto) 89.8 % Lymphocytes (%) (Auto) 7.5 % Monocytes (%) (Auto) 2.4 % Eosinophils (%) (Auto) 0.0 % Basophils (%) (Auto) 0.1 % Neutrophils # (Auto) 11.50 K/uL Lymphocytes # (Auto) 0.96 K/uL Monocytes # (Auto) 0.31 K/uL Eosinophils # (Auto) 0.00 K/uL Basophils # (Auto) 0.01 K/uL Recent Pertinent Medications Outpatient Anti-diabetic Regimen: * n/a * A1c = unknown The patient is currently receiving: * Insulin infusion titrated to goal 150-250 Risk Factors for Insulin Resistance: * Steroids: Hydrocortisone 100 mg q6h * Infection: on Zosyn for pulm infection * Pressors: Levophed * Diet: NPO * Mechanical Ventilation Assessment & Plan ASSESSMENT: * 21 y/o male admitted s/p respiratory and cardiac arrest, poor prognosis. Currently being maintained with supportive measures. * Insulin drip initiated last evening for significantly elevated BSG * BSGs currently controlled on drip rates of ~5 units/hr * Since insulin infusions are the standard of care for critically ill patients and patient requiring so much, will plan to continue with same plan * Goal range for critically ill patient is 140-180; however, with the patient's extremely poor prognosis, will elect to continue same goal range for the time being - most BSGs already less than 180 PLAN FOR INPATIENT GLYCEMIC CONTROL: * Continue insulin drip per protocol with goal 150-250 (loosened due to patient' s prognosis) * Please note that the plan above was derived based on current level of insulin resistance and hospital stress. These recommendations are appropriate for inpatient admission only. Plan of care upon discharge will need to be reassessed to avoid potential outpatient hypo/hyperglycemia. Thank you.
[2016-10-18 09:49] LABS: HYDROXYETHYLFLURAZEPAM CONF NEGATIVE NG/ML (CUTOFF=50); HYDROXYMIDAZOLAM NEGATIVE NG/ML (CUTOFF=50); HYDROXYTRIAZOLAM CONF NEGATIVE NG/ML (CUTOFF=50); TEMAZEPAM CONF NEGATIVE NG/ML (CUTOFF=50)
--- NOTE | 2016-10-22 01:01 | Death Summary ---
Summary of Admission Date Oct 15, 2016 at 01:28 Date & Time of Oct 22, 2016. 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 Per EMS report, the patient was found unresponsive and had agonal breaths. His last known well time was at 2216. He was found with a white substance on his face and a white crushed pill, marijuana were found nearby. He was intubated and had chest compressions about 30 minutes before he was brought to the ER. Was also found to have a blood sugar of 541 was admitted to ICU on ventilator, supportive care. treatment for pneumonia. failed to show improvement or stability. repeated neurologic exams without signs of function last neurology assessment and plan: Impression Post cardiac arrest (late hours of 7-13) secondary to presumed benzodiazepine drug overdose/ possible aspiration. Currently he has no signs of cerebral, brainstem, or spinal cord activity. This has been the case since admission in the development technologist hours of 714 He is completely ventilator dependent and shows no respiratory drive off the ventilator (failed apnea test) Blood pressure and core temperature are adequate. EEG could not be considered technically "flat' because of some very small, intermittent activity, but was very close to being flat. Overall, there is a grave prognosis for this patient, who had no central nervous system activity now for almost 48 hours. Plan I have had a long discussion with Dr. Cummins and the family including the patient's parents, uncles, and siblings. I do not see any meaningful brain activity and see no reason to prolong mechanical support any longer. Please contact me if I can be of further assistance on this case. I have personally spent 60 minutes with this case including direct patient care and discussion with his physicians and his family at the bedside. after days of supportive care and treatment for pneumonia with no improvement and no signs of meaningful recovery, family opted to withdraw care. support and empathy given to family extensively in this tragic situation
== END 2016-10-16 14:43 | disposition expired | DRG 917 ==
LOC: EDBD 00:16 → C.ED 00:17 → C.MSICU 01:28 → ENRESERV 02:05 → EDBEDREQ 02:06
PROVIDERS: ADMIT Family Medicine; ATTEND Family Medicine
PROC: 5A1945Z Respiratory Ventilation, 24-96 Consecutive Hours (ICD-10-PCS; principal; 2016-10-15)
PROC: 06HN33Z Insertion of Infusion Device into Left Femoral Vein, Percutaneous Approach (ICD-10-PCS; 2016-10-15)
PROC: 03HB33Z Insertion of Infusion Device into Right Radial Artery, Percutaneous Approach (ICD-10-PCS; 2016-10-16)
DX: T42.4X1A Poisoning by benzodiazepines, accidental (unintentional), initial encounter (principal); J69.0 Pneumonitis due to inhalation of food and vomit; E87.4 Mixed disorder of acid-base balance; G93.1 Anoxic brain damage, not elsewhere classified; I46.8 Cardiac arrest due to other underlying condition; R57.8 Other shock; F13.10 Sedative, hypnotic or anxiolytic abuse, uncomplicated; J45.909 Unspecified asthma, uncomplicated; F32.9 Major depressive disorder, single episode, unspecified; F41.9 Anxiety disorder, unspecified; Z79.899 Other long term (current) drug therapy